=== PATIENT | female | born 1990 | race Caucasian/White ===

== ENCOUNTER 2016-07-20 14:13 | Observation (INO) | payer MEDICAID ==
[2016-07-20] MEDS ORDERED: PROMETHAZINE HCL 25 MG SUPP.RECT PR PRN (14:41)
[2016-07-20] MEDS ORDERED: ONDANSETRON HCL INJ/PF 4 MG/2 ML SDV IV ONE (15:30)
[2016-07-20 15:43] LABS: ABSOLUTE EOSINOPHILS # (AUTO) 0.1 10^3/uL (0.0-0.6); ABSOLUTE LYMPHOCYTES (AUTO) 2.2 10^3/uL (0.5-4.7); ABSOLUTE NEUT (AUTO) 14.4 10^3/uL (1.7-8.2); BASOPHILS % (AUTO) 0.3 % (0-2); EOSINOPHILS % (AUTO) 0.5 % (0-6); HEMATOCRIT 32.1 % (36.0-47.0); HEMOGLOBIN 10.9 g/dL (12.0-15.5); HGB HCT DIFFERENCE 0.6; LYMPHOCYTES % (AUTO) 12.6 % (13-45); MEAN CORPUSCULAR HEMOGLOBIN 30.4 pg (27.0-33.4); MEAN CORPUSCULAR HGB CONC 33.9 g/dL (32.0-36.0); MEAN CORPUSCULAR VOLUME 90 fl (80-97); MONOCYTES % (AUTO) 5.5 % (3-13); RED BLOOD COUNT 3.58 10^6/uL (3.72-5.28); RED CELL DISTRIBUTION WIDTH 13.1 % (11.5-14.0); SEGMENTED NEUTROPHILS % (AUTO) 81.1 % (42-78); WHITE BLOOD COUNT 17.7 10^3/uL (4.0-10.5)
[2016-07-20 15:59] LABS: ALANINE AMINOTRANSFERASE 16 U/L (9-52); ALBUMIN 3.6 g/dL (3.5-5.0); ALKALINE PHOSPHATASE 111 U/L (38-126); ANION GAP 10 (5-19); ASPARTATE AMINO TRANSFERASE 13 U/L (14-36); BILIRUBIN,TOTAL 0.5 mg/dL (0.2-1.3); BLOOD UREA NITROGEN 10 mg/dL (7-20); CALCIUM 9.6 mg/dL (8.4-10.2); CARBON DIOXIDE 25 mmol/L (22-30); CHLORIDE 103 mmol/L (98-107); CREATININE RESULT 0.69 mg/dL (0.52-1.25); GLUCOSE 74 mg/dL (75-110); POTASSIUM 4.4 mmol/L (3.6-5.0); SODIUM 137.8 mmol/L (137-145); TOTAL PROTEIN 6.9 g/dL (6.3-8.2)
[2016-07-20] MEDS: CEFTRIAXONE 1 GM/D5W RTU 1 GM/50 ML RTUPB IV SCH (17:32)
[2016-07-20] MEDS: RINGERS SOLUTION,LACTATED 1,000 ML IV PRN (17:32)
[2016-07-20] MEDS: FAMOTIDINE 20 MG TABLET PO SCH (21:08)
[2016-07-20] MEDS: NITROFURANTOIN MONOHYD/M-CRYST 100 MG CAPSULE PO SCH (21:08)
[2016-07-20] MEDS: ONDANSETRON HCL INJ/PF 4 MG/2 ML SDV IV SCH (21:08)
[2016-07-21] MEDS: RINGERS SOLUTION,LACTATED 1,000 ML IV PRN ×2 (00:39→09:46)
[2016-07-21] MEDS: ONDANSETRON HCL INJ/PF 4 MG/2 ML SDV IV SCH ×2 (05:04→14:26)
[2016-07-21] MEDS: CEFTRIAXONE 1 GM/D5W RTU 1 GM/50 ML RTUPB IV SCH ×2 (05:04→17:23)
[2016-07-21] MEDS: NITROFURANTOIN MONOHYD/M-CRYST 100 MG CAPSULE PO SCH (09:27)
[2016-07-21] MEDS: FAMOTIDINE 20 MG TABLET PO SCH (09:27)
--- NOTE | 2016-07-21 10:54 | PDOC PROGRESS REPORT ---
Subjective Progress Note for:: 07/21/16 Subjective:: feeling better. flank pain improved. suprapubic/pelvic pain improved. Physical Exam - Physical Exam Vital Signs: Temp Pulse Resp BP Pulse Ox 97.9 F 90 16 96/57 L 98 07/21/16 08:19 07/21/16 08:19 07/21/16 08:19 07/21/16 08:19 07/21/16 08:19 Intake & Output 07/20/16 07/21/16 07/22/16 06:59 06:59 06:59 Weight 73.4 kg General appearance: PRESENT: no acute distress, cooperative GI/Abdominal exam: PRESENT: soft, other - gravid, nontender. Result Laboratory Results: 07/20/16 15:15 07/20/16 15:15 07/20/16 07/20/16 15:15 15:15 WBC 17.7 H RBC 3.58 L Hgb 10.9 L Hct 32.1 L MCV 90 MCH 30.4 MCHC 33.9 RDW 13.1 Plt Count 223 Seg Neutrophils % 81.1 H Lymphocytes % 12.6 L Monocytes % 5.5 Eosinophils % 0.5 Basophils % 0.3 Absolute Neutrophils 14.4 H Absolute Lymphocytes 2.2 Absolute Monocytes 1.0 Absolute Eosinophils 0.1 Absolute Basophils 0.0 Sodium 137.8 Potassium 4.4 Chloride 103 Carbon Dioxide 25 Anion Gap 10 BUN 10 Creatinine 0.69 Est GFR ( Amer) > 60 Est GFR (Non-Af Amer) > 60 Glucose 74 L Calcium 9.6 Total Bilirubin 0.5 AST 13 L ALT 16 Alkaline Phosphatase 111 Total Protein 6.9 Albumin 3.6 Assessment & Plan - Diagnosis (1) Abdominal pain affecting Is this a current diagnosis for this admission?: Yes (2) Pyelonephritis Is this a current diagnosis for this admission?: Yes - Time Time Spent with patient: Less than 15 minutes Critical Time spent with patient: Less than 15 minutes Medications reviewed and adjusted accordingly: Yes Anticipated discharge: Home Within: within 24 hours - will discharge this evening after 3rd dose of rocephin if remains stable.
[2016-07-21 13:11] VITALS: BP 98/59
--- NOTE | 2016-07-21 18:34 | PDOC DISCHARGE SUMMARY ---
General - Admit/Disc Date/PCP Admission Date/Primary Care Provider: 07/20/16 14:13 MOIRA HARDING Discharge Date: 07/21/16 - Discharge Diagnosis (1) Abdominal pain affecting Is this a current diagnosis for this admission?: Yes (2) Pyelonephritis Is this a current diagnosis for this admission?: Yes - Additional Information Discharge Activity: Activity As Tolerated, No tub bath Home Medications: No Home Medications 05/07/16 History of Present Illness History of Present Illness: SHIMA SARMIENTO is a 25 year old female Hospital Course Hospital Course: doing well. IV rocephin x 3 doses Physical Exam - Physical Exam Vital Signs: Temp Pulse Resp BP Pulse Ox 98.0 F 73 18 98/59 L 97 07/21/16 12:09 07/21/16 12:09 07/21/16 12:09 07/21/16 12:09 07/21/16 12:09 Intake & Output 07/20/16 07/21/16 07/22/16 06:59 06:59 06:59 Weight 73.4 kg General appearance: PRESENT: no acute distress, cooperative GI/Abdominal exam: PRESENT: soft, other - gravid, nontender Result Laboratory Results: 07/20/16 15:15 07/20/16 15:15 Plan Discharge Plan: discharge home with po antibiotics and follow up in 1 wk. Time Spent: Less than 30 Minutes
== END 2016-07-21 18:45 | disposition home or self-care (01) ==
LOC: 2S 14:13
PROVIDERS: ADMIT Obstetrics & Gynecology; ATTEND Obstetrics & Gynecology
DX: O23.03 Infections of kidney in pregnancy, third trimester (principal); Z3A.31 31 weeks gestation of pregnancy
CPT/HCPCS: 59025 ×2; 36415; 85025; 80053; G0378 ×2; G0379; J3490 ×4; J2405 ×2; J7120 ×2; J0696 ×2; J8499

== ENCOUNTER 2016-08-14 11:25 | Emergency (ER) | payer MEDICAID ==
[2016-08-14 12:14] VITALS: BP 109/72
--- NOTE | 2016-08-14 12:40 | ER Document Report ---
ED General - General Chief Complaint: Chest Pain Stated Complaint: CHEST PAIN Mode of Arrival: Medic Information source: Patient Notes: 25 yr old female presents with complaitns of chest pain radiating to her groin that started today and occurs every 5 minutes. pt denies any vaginal bleeding or discharge. pt denies any cardiac hx TRAVEL OUTSIDE OF THE [place] IN LAST 30 DAYS: No - HPI Onset: Just prior to arrival Onset/Duration: Sudden Quality of pain: Sharp Severity: Mild Pain Level: 1 Associated symptoms: Other Exacerbated by: Denies Relieved by: Denies Similar symptoms previously: No Recently seen / treated by doctor: No - Related Data Allergies/Adverse Reactions: No Known Allergies Allergy (Verified 05/06/16 13:55) Past Medical History - Social History Smoking Status: Never Smoker Cigarette use (# per day): No Chew tobacco use (# tins/day): No Smoking Education Provided: No Family History: Reviewed & Not Pertinent Psychiatric Medical History: Denies: Hx Depression Past Surgical History: Reports: Hx Section - Immunizations Immunizations up to date: Yes Hx Diphtheria, Pertussis, Tetanus Vaccination: No Review of Systems - Review of Systems Notes: REVIEW OF SYSTEMS: CONSTITUTIONAL : Denies fever, chills, or sweats. Denies recent illness. EENT: Denies eye, ear, throat, or mouth pain or symptoms. Denies nasal or sinus congestion or discharge. Denies throat, tongue, or mouth swelling or difficulty swallowing. CARDIOVASCULAR: Admits to chest pain rating to her abdomen RESPIRATORY: Denies cough, cold, or chest congestion. Denies shortness of breath, difficulty breathing, or wheezing. GASTROINTESTINAL: Denies abdominal pain or distention. Denies nausea, vomiting , or diarrhea. Denies blood in vomitus, stools, or per rectum. Denies black, tarry stools. Denies constipation. GENITOURINARY: Denies difficulty urinating, painful urination, burning, frequency, blood in urine, or discharge. FEMALE GENITOURINARY: Denies vaginal bleeding, heavy or abnormal periods, irregular periods. Denies vaginal discharge or odor. MUSCULOSKELETAL: Denies back or neck pain or stiffness. Denies joint pain or swelling. SKIN: Denies rash, lesions or sores. HEMATOLOGIC : Denies easy bruising or bleeding. LYMPHATIC: Denies swollen, enlarged glands. NEUROLOGICAL: Denies confusion or altered mental status. Denies passing out or loss of consciousness. Denies dizziness or lightheadedness. Denies headache. Denies weakness or paralysis or loss of use of either side. Denies problems with gait or speech. Denies sensory loss, numbness, or tingling. Denies seizures. PSYCHIATRIC: Denies anxiety or stress. Denies depression, suicidal ideation, or homicidal ideation. ALL OTHER SYSTEMS REVIEWED AND NEGATIVE. Dictation was performed using [employer] voice recognition software PHYSICAL EXAMINATION: GENERAL: Well-appearing, well-nourished and in no acute distress. HEAD: Atraumatic, normocephalic. EYES: Pupils equal round and reactive to light, extraocular movements intact, conjunctiva are normal. ENT: Nares patent, oropharynx clear without exudates. Moist mucous membranes. NECK: Normal range of motion, supple without lymphadenopathy LUNGS: Breath sounds clear to auscultation bilaterally and equal. No wheezes rales or rhonchi. HEART: Regular rate and rhythm without murmurs ABDOMEN: Soft, gravid abdomen Female : deferred Musculoskeletal: Normal range of motion, no pitting or edema. No cyanosis. NEUROLOGICAL: Cranial nerves grossly intact. Normal speech, normal gait. Normal sensory, motor exams PSYCH: Normal mood, normal affect. SKIN: Warm, Dry, normal turgor, no rashes or lesions noted. Physical Exam - Vital signs Vitals: Temp Pulse Resp BP Pulse Ox 98.6 F 116 H 20 109/72 97 08/14/16 12:09 08/14/16 12:09 08/14/16 12:09 08/14/16 12:09 08/14/16 12:09 Course - Re-evaluation Re-evalutation: 08/14/16 12:40 Given that the pain is every 5 minutes, this does not sound cardiac or life- threatening in nature and actually appears to be more contraction related. Patient will be discharged and sent to [facility] for evaluation After performing a Medical Screening Examination, I estimate there is LOW risk for RUPTURED ESOPHAGUS, PNEUMOTHORAX, PULMONARY EMBOLISM, ACUTE CORONARY SYNDROME, OR THORACIC AORTIC DISSECTION, thus I consider the discharge disposition reasonable. The patient and I have discussed the diagnosis and risks , and we agree with discharging home with close follow-up. We also discussed returning to the Emergency Department immediately if new or worsening symptoms occur. We have discussed the symptoms which are most concerning (e.g., bloody sputum, worsening pain or shortness of breath) that necessitate immediate return. - Vital Signs Vital signs: Temp Pulse Resp BP Pulse Ox 98.6 F 116 H 20 109/72 97 08/14/16 12:09 08/14/16 12:09 08/14/16 12:09 08/14/16 12:08/14/16 12:09 Discharge - Discharge Clinical Impression: Abdominal pain affecting Condition: Stable Disposition: LABOR CHECK Instructions: Abdominal Pain ([facility])
--- NOTE | 2016-08-14 22:02 | EKG REPORT ---
SEVERITY:- OTHERWISE NORMAL ECG - SINUS TACHYCARDIA : Confirmed by: Oliverio Masters 14-Aug-2016 22:01:48
== END 2016-08-14 12:50 | disposition admitted as inpatient to this hospital (09) ==
LOC: ER 11:25
DX: R10.9 Unspecified abdominal pain (principal); R07.9 Chest pain, unspecified
CPT/HCPCS: 93005; 93010; 99284

== ENCOUNTER 2016-08-14 13:09 | Outpatient (CLI) | payer MEDICAID ==
[2016-08-14 14:39] LABS: APPEARANCE,URINE SLIGHTLY-CLOUDY; BILIRUBIN,URINE NEGATIVE (NEGATIVE); GLUCOSE, URINE NEGATIVE (NEGATIVE); KETONES,URINE NEGATIVE (NEGATIVE); LEUKOCYTE ESTERASE,URINE SMALL (NEGATIVE); NITRITE,URINE POSITIVE (NEGATIVE); PROTEIN,URINE NEGATIVE (NEGATIVE); URINE SPECIFIC GRAVITY 1.018; UROBILINOGEN,URINE NEGATIVE mg/dL (<2.0)
[2016-08-14] MEDS ORDERED: CEPHALEXIN 500 MG CAPSULE ONE (14:53)
[2016-08-14 15:07] LABS: URINE BARBITURATES SCREEN NEGATIVE; URINE METHADONE SCREEN NEGATIVE; URINE OPIATES LOW NEGATIVE; URINE PHENCYCLIDINE SCREEN NEGATIVE
--- NOTE | 2016-08-14 15:56 | Non Stress Test Report ---
Non Stress Test Datetime Report Generated by CPN: 08/14/2016 15:56 DEMOGRAPHIC EGA NST: 35.3 INDICATION Indication for Study: Ordered by Provider Indication for Study (NST) Other: Labor Check MONITORING Monitor Explained: Monitor Explained; Test Explained; Patient Verbalized Understanding Time on Monitor: 08/14/2016 13:02 Time off Monitor: 08/14/2016 14:00 NST Duration: 58 NST INTERVENTIONS NST Interventions: PO Hydration; Reposition Patient Physician Notified NST: H. Cedric, CNM BABY A: [id number] BABY A Movement : Present Contraction Frequency : 0 FHR Baseline : 140 Accelerations : 15X15 Decelerations : None Variability : Moderate 6-25bpm NST Review: Meets Criteria for Reactive NST NST Review and Verified By : MIRIAM Yu Results: Reactive NST REPORT Report Trigger: Send Report
== END 2016-08-14 14:59 | disposition home or self-care (01) ==
LOC: LC 13:09
PROVIDERS: ATTEND Obstetrics & Gynecology
PROC: 4A1HXCZ Monitoring of Products of Conception, Cardiac Rate, External Approach (ICD-10-PCS; principal; 2016-08-14)
DX: Z34.93 Encounter for supervision of normal pregnancy, unspecified, third trimester (principal); Z36 Encounter for antenatal screening of mother; Z3A.35 35 weeks gestation of pregnancy
CPT/HCPCS: 59025; 80307; 81001

== ENCOUNTER 2016-08-14 22:43 | Inpatient (IN) | payer MEDICAID ==
[2016-08-15 00:04] LABS: ABSOLUTE LYMPHOCYTES (AUTO) 0.8 10^3/uL (0.5-4.7); ABSOLUTE MONOCYTES (AUTO) 1.3 10^3/uL (0.1-1.4); ABSOLUTE NEUT (AUTO) 8.6 10^3/uL (1.7-8.2); BASOPHILS % (AUTO) 0.2 % (0-2); EOSINOPHILS % (AUTO) 0.2 % (0-6); HEMOGLOBIN 9.6 g/dL (12.0-15.5); HGB HCT DIFFERENCE 0.8; LYMPHOCYTES % (AUTO) 7.5 % (13-45); MEAN CORPUSCULAR HEMOGLOBIN 29.9 pg (27.0-33.4); MEAN CORPUSCULAR HGB CONC 34.2 g/dL (32.0-36.0); MEAN CORPUSCULAR VOLUME 88 fl (80-97); MONOCYTES % (AUTO) 11.8 % (3-13); RED BLOOD COUNT 3.19 10^6/uL (3.72-5.28); RED CELL DISTRIBUTION WIDTH 13.4 % (11.5-14.0); SEGMENTED NEUTROPHILS % (AUTO) 80.3 % (42-78); WHITE BLOOD COUNT 10.7 10^3/uL (4.0-10.5)
[2016-08-15] MEDS ORDERED: CEFTRIAXONE 1 GM/D5W RTU 50 ML IV PRN (00:13)
[2016-08-15] MEDS ORDERED: RINGERS SOLUTION,LACTATED 1,000 ML IV PRN (00:17)
[2016-08-15 00:25] LABS: ALANINE AMINOTRANSFERASE 22 U/L (9-52); ALBUMIN 3.1 g/dL (3.5-5.0); ALKALINE PHOSPHATASE 116 U/L (38-126); ANION GAP 12 (5-19); ASPARTATE AMINO TRANSFERASE 18 U/L (14-36); BILIRUBIN,DIRECT 0.1 mg/dL (0.0-0.4); BILIRUBIN,TOTAL 0.4 mg/dL (0.2-1.3); BLOOD UREA NITROGEN 6 mg/dL (7-20); CALCIUM 8.8 mg/dL (8.4-10.2); CARBON DIOXIDE 20 mmol/L (22-30); CHLORIDE 105 mmol/L (98-107); GLUCOSE 84 mg/dL (75-110); TOTAL PROTEIN 5.8 g/dL (6.3-8.2)
[2016-08-15] MEDS ORDERED: ONDANSETRON HCL INJ/PF 4 MG/2 ML SDV ONE (00:49)
[2016-08-15] MEDS ORDERED: MAG HYDROX/AL HYDROX/SIMETH SUSP 30 ML UDCUP ONE (00:49)
[2016-08-15] MEDS ORDERED: FAMOTIDINE INJ/PF 20 MG/2 ML SDV IV ONE (00:59)
[2016-08-15] MEDS ORDERED: CEFTRIAXONE 1 GM/D5W RTU 1 GM/50 ML RTUPB IV ONE (00:59)
[2016-08-15] MEDS ORDERED: ONDANSETRON HCL INJ/PF 4 MG/2 ML SDV IV PRN (01:02)
[2016-08-15] MEDS ORDERED: MORPHINE SULFATE 10 MG/ML INJ IV PRN ×2 (01:03→10:36)
[2016-08-15] MEDS: RINGERS SOLUTION,LACTATED 1,000 ML IV PRN ×3 (01:06→18:46)
[2016-08-15] MEDS ORDERED: ACETAMINOPHEN 100 ML IV ONE (01:17)
--- NOTE | 2016-08-15 01:19 | PDOC H&P ---
History of Present Illness Admission Date/PCP: 08/14/16 23:29 RANDA RILEY MD Patient complains of: back pain, vomiting History of Present Illness: SHIMA SARMIENTO is a 25 year old [id number] edc 09/15/16 EGA 35+3 presents with known uti now having back pain, vomiting. She does not think she has had fever, denies chills. Known history of pyelo several times before Past Medical History Cardiac Medical History: Reports: None Pulmonary Medical History: Reports: None Endocrine Medical History: Reports: None Renal/ History Note: history of pyelo and utis Malignancy Medical History: Reports: None GI Medical History: Reports: Gastroesophageal Reflux Disease Musculoskeltal Medical History: Reports: None Skin Medical History: Reports: None Psychiatric Medical History: Reports: None Denies: Depression Past Surgical History Past Surgical History: Reports: Section Social History Information Source: Patient Lives with: Family Smoking Status: Current Every Day Smoker Cigars Per Day: 2 Frequency of Alcohol Use: None Hx Recreational Drug Use: No Drugs: None Hx Prescription Drug Abuse: No Family History Family History: Reviewed & Not Pertinent Parental Family History Reviewed: Yes Children Family History Reviewed: Yes Sibling(s) Family History Reviewed.: Yes Medication/Allergy Home Medications: Nitrofurantoin Monohyd/M-Cryst [Macrobid 100 mg Capsule] 100 mg PO DAILY Allergies/Adverse Reactions: No Known Allergies Allergy (Verified 08/14/16 23:42) Physical Exam - Physical Exam Vital Signs: Intake & Output 08/13/16 08/14/16 08/15/16 06:59 06:59 06:59 Weight 77 kg General appearance: PRESENT: no acute distress, cooperative Respiratory exam: PRESENT: clear to auscultation holden Cardiovascular exam: PRESENT: tachycardia GI/Abdominal exam: PRESENT: normal bowel sounds, soft, other - positive left cva tenderness. ABSENT: distended, guarding, mass, organolmegaly, rebound, tenderness Musculoskeletal exam: PRESENT: ambulatory Neurological exam: PRESENT: alert, altered, awake Result Laboratory Results: 08/14/16 23:51 08/14/16 23:51 08/14/16 08/14/16 23:51 23:51 WBC 10.7 H RBC 3.19 L Hgb 9.6 L Hct 28.0 L MCV 88 MCH 29.9 MCHC 34.2 RDW 13.4 Plt Count 165 Seg Neutrophils % 80.3 H Lymphocytes % 7.5 L Monocytes % 11.8 Eosinophils % 0.2 Basophils % 0.2 Absolute Neutrophils 8.6 H Absolute Lymphocytes 0.8 Absolute Monocytes 1.3 Absolute Eosinophils 0.0 Absolute Basophils 0.0 Sodium 137.0 Potassium 4.0 Chloride 105 Carbon Dioxide 20 L Anion Gap 12 BUN 6 L Creatinine 0.60 Est GFR ( Amer) > 60 Est GFR (Non-Af Amer) > 60 Glucose 84 Calcium 8.8 Total Bilirubin 0.4 AST 18 ALT 22 Alkaline Phosphatase 116 Total Protein 5.8 L Albumin 3.1 L Heartbeat/NST: category 1 EKG Comments: sinus tachycardia Assessment & Plan - Diagnosis (1) Pyelonephritis Is this a current diagnosis for this admission?: YesPlan: IV Rocephin and antiemetics. Pain control as necessary - Inpatient Certification Based on my medical assessment, after consideration of the patient's comorbidities, presenting symptoms, or acuity I expect that the services needed warrant INPATIENT care.: Yes I certify that my determination is in accordance with my understanding of Medicare's requirements for reasonable and necessary INPATIENT services [42 CFR 412.3e].: Yes Medical Necessity: Need For IV Fluids, Need for Pain Control, Need for IV Antibiotics, Risk of Complication if Not Cared For in Hospital
[2016-08-15 01:32] LABS: APPEARANCE,URINE SLIGHTLY-CLOUDY; BILIRUBIN,URINE NEGATIVE (NEGATIVE); GLUCOSE, URINE NEGATIVE (NEGATIVE); KETONES,URINE 80 mg/dL (NEGATIVE); LEUKOCYTE ESTERASE,URINE TRACE (NEGATIVE); NITRITE,URINE NEGATIVE (NEGATIVE); PROTEIN,URINE NEGATIVE (NEGATIVE); URINE SPECIFIC GRAVITY 1.008; UROBILINOGEN,URINE NEGATIVE mg/dL (<2.0)
[2016-08-15 01:56] LABS: URINE BARBITURATES SCREEN NEGATIVE; URINE METHADONE SCREEN NEGATIVE; URINE OPIATES LOW NEGATIVE; URINE PHENCYCLIDINE SCREEN NEGATIVE
--- NOTE | 2016-08-15 04:45 | L&D Admission Assessment ---
LD ADM ASMT Datetime Report Generated by CPN: 08/15/2016 04:45 PATIENT ASSESSMENT Assessment Type: Admission Assessment (08/14/2016 23:37:Jaylin Boyle, MIRIAM) WEIGHT Weight (lb): 169 (08/14/2016 23:43:QS system process) Weight (lb): 172 (08/14/2016 13:35:QS system process) Weight (kg): 76.8 (08/14/2016 23:43:QS system process) Weight (kg): 78.2 (08/14/2016 13:35:QS system process) Total Wt Gain (lb): 19 (08/14/2016 23:43:QS system process) Total Wt Gain (lb): 22 (08/14/2016 13:35:QS system process) Total Wt Gain (lb): 6 (08/14/2016 13:21:QS system process) Wt Gain (kg): 8.8 (08/14/2016 23:43:QS system process) Wt Gain (kg): 9.8 (08/14/2016 13:35:QS system process) Wt Gain (kg): 2.8 (08/14/2016 13:21:QS system process) BMI: 30.9 (08/14/2016 23:43:QS system process) BMI: 31.5 (08/14/2016 13:35:QS system process) PAIN Pain Scale: 2 (08/15/2016 03:02:Jaylin Boyle RN) Pain Scale: 5 (08/14/2016 23:12:Jaylin Boyle RN) Pain Presence: Intermittent (08/15/2016 03:02:Jaylin Boyle RN) Pain Presence: Intermittent (08/14/2016 23:12:Jaylin Boyle RN) Pain Type: Dull (08/15/2016 03:02:Jaylin Boyle RN) Pain Type: Contraction (08/14/2016 23:12:Jaylin Boyle RN) Pain Location: Back (08/15/2016 03:02:Jaylin Boyle RN) Pain Location: Abdomen; Back; Head (08/14/2016 23:12:Jaylin Kossmann, RN) CONTRACTIONS Frequency (min): x2 (08/15/2016 00:30:Jaylin Anaann, RN) Frequency (min): none (08/15/2016 00:01:Jaylin Jessicasmann, RN) Frequency (min): none (08/14/2016 23:30:Jaylin Kossmann, RN) Frequency (min): 0 (08/14/2016 14:00:Eleonora Agatha, RN) Frequency (min): 0 (08/14/2016 13:30:Eleonora Agatha, RN) Duration (sec): 40-50 (08/15/2016 00:30:Jaylin Jessicasmann, RN) Quality: Mild (08/15/2016 00:30:Jaylin Jessicasmann, RN) Resting Tone [place]: Relaxed (08/15/2016 00:30:Jaylin Jessicasmann, RN) Resting Tone [place]: Relaxed (08/15/2016 00:01:Jaylin Jessicasmann, RN) Resting Tone [place]: Relaxed (08/14/2016 23:30:Jaylin Kossmann, RN) Resting Tone [place]: Relaxed (08/14/2016 14:00:Eleonora Agatha, RN) Resting Tone [place]: Relaxed (08/14/2016 13:30:Eleonora Agatha, RN) NEURO Level of Consciousness: Fully Conscious (08/14/2016 23:37:Jaylin Boyle RN) DTR's/Clonus: DTRs 2+; No Clonus (08/14/2016 23:37:Jaylin Boyle RN) Headache: Generalized (08/14/2016 23:37:Jaylin Boyle RN) Dizziness: Yes (08/14/2016 23:37:Jaylin Boyle RN) Blurred Vision: No (08/14/2016 23:37:Jaylin Boyle RN) Extremity Numbness/Tingling : None (08/14/2016 23:37:Jaylin Boyle RN) Extremity Movement: Full Range of Motion (08/14/2016 23:37:Jaylin Boyle RN) CARDIOVASCULAR Heart Rhythm: Regular (Annotations: normal s1s2 on auscultation with no evidence of murmur, evidence of intermittent tachycardia present ) (08/14/2016 23:37:Jaylin Boyle RN) Nailbeds: [place] (08/14/2016 23:37:Jaylin Boyle RN) Capillary Refill: Less than 3 Seconds (08/14/2016 23:37:Jaylin Boyle RN) Lower Extremities Edema: None (08/14/2016 23:37:Jaylin Boyle RN) Lower Extremities Edema Degree: None (08/14/2016 23:37:Jaylin Boyle RN) Upper Extremities Edema: None (08/14/2016 23:37:Jaylin Boyle RN) Upper Extremities Edema Degree: None (08/14/2016 23:37:Jaylin Boyle RN) Facial Edema: None (08/14/2016 23:37:Jaylin Boyle RN) Bola's Sign Left Leg: Negative (08/14/2016 23:37:Jaylin Boyle RN) Bola's Sign Right Leg: Negative (08/14/2016 23:37:Jaylin Boyle RN) DVT RISK ASSESSMENT DVT Risk Age: Age less than 41 years (08/14/2016 23:37:Jaylin Boyle RN) DVT Risk BMI: BMI<31 (08/14/2016 23:37:Jaylin Boyle RN) DVT Risk Surgery: None Applicable (08/14/2016 23:37:Jaylin Boyle RN) DVT Risk Other: Women Only- or (<1 month) (08/14/2016 23:37:Jaylin Boyle RN) DVT Risk Total: 1 (08/14/2016 23:37:QS system process) DVT Risk Text: Low Risk (<10%) No specific measures, early ambulation (08/14/2016 23:37:QS system process) RESPIRATORY Respiratory Effort: Unlabored; Regular Rhythm; Equal Expansion (08/14/2016 23:37:Jaylin Boyle RN) Breath Sounds, Left: Clear and Equal (08/14/2016 23:37:Jaylin Boyle RN) Breath Sounds, Right: Clear and Equal (08/14/2016 23:37:Jaylin Boyle RN) Cough Productivity: Productive (08/14/2016 23:37:Jaylin Boyle RN) GASTROINTESTINAL Nausea/Vomiting: Present (Annotations: patient states that she has vomitted five times in the last hour ) (08/14/2016 23:37:Jaylin Boyle RN) Bowel Sounds: Normoactive; All Quadrants (08/14/2016 23:37:Jaylin Boyle RN) RUQ Epigastric Pain: Denies (08/14/2016 23:37:Jaylin Boyle RN) Bowel Patterns: Soft, Formed Stool (08/14/2016 23:37:Jaylin Boyle RN) Hemorrhoids: None (08/14/2016 23:37:Jaylin Boyle RN) Diet Type: Regular diet (08/14/2016 23:37:Jaylin Boyle RN) GENITOURINARY Bladder: Nondistended (08/14/2016 23:37:Jaylin Boyle RN) Frequency of Urination: Yes (08/14/2016 23:37:Jaylin Boyle RN) Urination Burning: No (08/14/2016 23:37:Jaylin Boyle RN) CVA Tenderness: Yes (Annotations: left sided cva tenderness) (08/14/2016 23:37:Jaylin Boyle RN) Vaginal Discharge Amount: Small (08/14/2016 23:37:Jaylin Boyle RN) Vaginal Discharge Color: Yellow (08/14/2016 23:37:Jaylin Boyle RN) Vaginal Discharge Odor: Non-Odorous (08/14/2016 23:37:Jaylin Boyle RN) Vaginal Discharge Character: Thin (08/14/2016 23:37:Jaylin Boyle RN) INTEGUMENTARY Skin Color: Normal for Race (08/14/2016 23:37:Jaylin Boyle RN) Skin Temperature: Warm (08/14/2016 23:37:Jaylin Boyle RN) Skin Moisture: Dry (08/14/2016 23:37:Jayiln Boyle RN) Surgical Scars: csection scar (08/14/2016 23:37:Jaylin Boyle RN) BENJA SKIN ASSESSMENT Benja Scale Sensory Perception: No Impairment- Responds to verbal commands. Has no sensory deficit which would limit ability to feel or voice pain or discomfort (08/14/2016 23:37:Jaylin Boyle RN) Benja Scale Moisture: Rarely Moist- Skin is usually dry. Linen only requires changing at routine intervals (08/14/2016 23:37:Jaylin Boyle RN) Benja Scale Activity: Walks Frequently- Walks outside the room at least twice a day and inside room at least every 2 hours during the day. (08/14/2016 23:37:Jaylin Boyle RN) Benja Scale Mobility: No Limitations- Makes major and frequent changes in position without assistance (08/14/2016 23:37:Jaylin Boyle RN) Benja Scale Nutrition: Excellent- Eats most of every meal. Never refuses a meal. Usually eats a total of 4 or more servings of meat and dairy products. Occasionally eats between meals. Does not require supplementation (08/14/2016 23:37:Jaylin Boyle RN) Benja Scale Friction and Shear: No Apparent Problem- Moves in bed and in chair independently and has sufficient muscle strength to lift up completely during move. Maintains good position in bed or chair at all times (08/14/2016 23:37:Jaylin Boyle RN) Benja Scale Total: 23 (08/14/2016 23:37:QS system process) Benja Scale Risk: No Risk of Pressure Ulcer Noted at this Time (08/14/2016 23:37:QS system process) SUPPORT Family Support: Family supportive (08/14/2016 23:37:Jaylin Boyle RN) Emotional State: Calm/Relaxed (08/14/2016 23:37:Jaylin Boyle RN) SAFETY Call [place]th Within Reach: Yes (08/14/2016 23:37:Jaylin Boyle RN) Side Rails Up: Yes (08/14/2016 23:37:Jaylin Boyle RN) Bed Wheels Locked: Yes (08/14/2016 23:37:Jaylin Boyle RN) Arm Bands Present: Yes (08/14/2016 23:37:Jaylin Boyle RN) Isolation: [place] (08/14/2016 23:37:Jaylin Boyle RN) FALL SCREEN Fall Risk History of Falling: (0) No (08/14/2016 23:37:Jaylin Boyle RN) Fall Risk Secondary Diagnosis: (0) No (08/14/2016 23:37:Jaylin Boyle RN) Fall Risk Ambulatory Aid: (0) None/Bedrest/Wheelchair/Nurse Assist (08/14/2016 23:37:Jaylin Boyle RN) Fall Risk IV Therapy: (20) Yes (08/14/2016 23:37:Jaylin Boyle RN) Fall Risk Gait: (0) Normal/Bedrest/Immobile (08/14/2016 23:37:Jaylin Boyle RN) Fall Risk Mental Status: (0) Oriented to Own Ability (08/14/2016 23:37:Jaylin Boyle RN) Fall Risk Score: 20 (08/14/2016 23:37:QS system process) Fall Risk Score Definition: No Risk: No action required (08/14/2016 23:37:QS system process) RECENT TRAVEL/INFECTIOUS DISEASE Recent Exp Communicable Disease: Yes (Annotations: daughter and sister recently had the flu ) (08/14/2016 23:37:Jaylin Boyle RN) Cough or Fever: Yes (08/14/2016 23:37:Jaylin Boyle RN) Foreign Travel Past 10 Days: No (08/14/2016 23:37:Jaylin Boyle RN) Open Wounds or Sores: No (08/14/2016 23:37:Jaylin Boyle RN) Prior Antibiotic Resistance Tx: No (08/14/2016 23:37:Jaylin Boyle RN) Cultures Obtained: Not Applicable (Annotations: plan for blood cultures ) (08/14/2016 23:37:Jaylin Boyle RN) Isolation Initiated: No (08/14/2016 23:37:Jaylin Boyle RN) Pt/Family Education: Handwashing Hygiene (08/14/2016 23:37:Jaylin Boyle RN) BABY A FHR Baseline Rate (bpm) Baby A: 135 (08/15/2016 00:30:Jaylin Boyle RN) FHR Baseline Rate (bpm) Baby A: 140 (08/15/2016 00:01:Jaylin Boyle RN) FHR Baseline Rate (bpm) Baby A: 135 (08/14/2016 23:30:Jaylin Boyle RN) FHR Baseline Rate (bpm) Baby A: 145 (08/14/2016 14:00:Eleonora Snider RN) FHR Baseline Rate (bpm) Baby A: 145 (08/14/2016 13:30:Eleonora Snider RN) Variability Baby A: Moderate 6-25 bpm (08/15/2016 00:30:Jaylin Boyle RN) Variability Baby A: Moderate 6-25 bpm (08/15/2016 00:01:Jaylin Boyle RN) Variability Baby A: Moderate 6-25 bpm (08/14/2016 23:30:Jaylin Boyle RN) Variability Baby A: Moderate 6-25 bpm (08/14/2016 14:00:Eleonora Snider RN) Variability Baby A: Moderate 6-25 bpm (08/14/2016 13:30:Eleonora Snider RN) Accelerations Baby A: 15X15 (08/15/2016 00:30:Jaylin Boyle RN) Accelerations Baby A: 15X15 (08/15/2016 00:01:Jaylin Boyle RN) Accelerations Baby A: 15X15 (08/14/2016 23:30:Jaylin Boyle RN) Accelerations Baby A: 15X15 (08/14/2016 14:00:Eleonora Snider RN) Accelerations Baby A: 15X15 (08/14/2016 13:30:Eleonora Snider RN) Decelerations Baby A: None (08/15/2016 00:30:aJylin Boyle RN) Decelerations Baby A: None (08/15/2016 00:01:Jaylin Boyle RN) Decelerations Baby A: None (08/14/2016 23:30:Jaylin Boyle RN) Decelerations Baby A: None (08/14/2016 14:00:Eleonora Snider RN) Decelerations Baby A: None (08/14/2016 13:30:Eleonora Snider RN) ADDITIONAL COMMENTS Assessment Flag: Admission Assessment (08/14/2016 23:37:QS system process)
--- NOTE | 2016-08-15 04:45 | L&D General Admission ---
General Admit Datetime Report Generated by CPN: 08/15/2016 04:45 INFORMATION Patient Age: 25 (05/07/2016 11:49:QS system process) EDC: 09/15/2016 00:00 (08/14/2016 13:21:Eleonora Snider RN) : 2 (08/14/2016 13:21:Eleonora Snider RN) Para: 1 (08/14/2016 13:21:Eleonora Snider RN) Term: 1 (08/14/2016 13:21:Eleonora Snider RN) : 0 (08/14/2016 13:21:Eleonora Snider RN) Spontaneous Abortions: 0 (08/14/2016 13:21:Eleonora Snider RN) Induced Abortions: 0 (08/14/2016 13:21:Eleonora Snider RN) Livin (08/14/2016 13:21:Eleonora Snider RN) Cesareans: 1 (08/14/2016 13:21:Eleonora Snider RN) VBACs: 0 (08/14/2016 13:21:Eleonora Snider RN) Ectopic: 0 (08/14/2016 13:21:Eleonora Snider RN) Multiple Births: 0 (08/14/2016 13:21:Eleonora Snider RN) Baby, Number in Womb: 1 (08/14/2016 13:21:Eleonora Snider RN) [facility]ARE [facility] (08/14/2016 13:21:Eleonora Snider RN) Adequate Care: Yes (08/14/2016 13:21:Eleonora Snider RN) Prepregnancy Weight (lb): 150 (08/14/2016 13:21:Jaylin Boyle RN) Prepregnancy Weight (kg): 68.2 (08/14/2016 13:21:QS system process) Height (in): 62 (08/15/2016 03:58:QS system process) Height (in): 62 (08/14/2016 23:43:QS system process) Height (in): 62 (08/14/2016 13:35:QS system process) Height (in): 62 (05/07/2016 12:20:QS system process) ALLERGIES Medication Allergy: No (08/14/2016 13:21:Jaylin Boyle RN) Medication Allergies: No Known Allergies (08/14/2016) (08/14/2016 23:43:QS system process) Medication Allergies: No Known Allergies (05/06/2016) (05/07/2016 11:49:QS system process) Latex Allergy: No Latex Allergies (08/14/2016 13:21:Jaylin Boyle RN) Food Allergies: denies (08/14/2016 13:21:Jaylin Boyle RN) Environmental Allergies: denies (08/14/2016 13:21:Jaylin Boyle RN) COMMUNICATION Primary Language: Turkmen (08/14/2016 13:21:Eleonora Snider RN) Medical Tx Preferred Language: Turkmen (08/14/2016 13:21:Eleonora Snider RN) Turkmen Communication Ability: Speaks Turkmen; Reads Turkmen (08/14/2016 13:21:Jaylin Boyle RN) Communication Barrier(s): None (08/14/2016 13:21:Jaylin Boyle RN) DEMOGRAPHICS Address: [address] [place] [id number] (08/14/2016 13:09:QS system process) Address: [address] [place] [address] (05/07/2016 11:49:QS system process) Zipcode: [address] (05/07/2016 11:49:QS system process) Home (05/07/2016 11:49:QS system process) SSN: [id number] (05/07/2016 11:49:QS system process) Next of Kin Name: ROBYN CURTIS (05/07/2016 11:49:QS system process) Next of Kin (05/07/2016 11:49:QS system process) Next of Kin Relationship: MO (05/07/2016 11:49:QS system process) Date of : 1990 (05/07/2016 11:49:QS system process) Marital Status: (05/07/2016 11:49:QS system process) Sex: Female (05/07/2016 11:49:QS system process) Race: (05/07/2016 11:49:QS system process) Ethnicity: Non- or (05/07/2016 11:49:QS system process) Gnosticist: None (05/07/2016 11:49:QS system process) DRUG AND ALCOHOL USE Alcohol: No (08/14/2016 13:21:Jaylin Boyle RN) Cigarettes: Current Some Day Smoker. [id number] (08/14/2016 13:21:Jaylin Boyle RN) Marijuana: No (08/14/2016 13:21:Jaylin Boyle RN) Cocaine: No (08/14/2016 13:21:Jaylin Boyle RN) Other Illicit Drugs: No (08/14/2016 13:21:Jaylin Boyle RN) VACCINE HISTORY Influenza Vaccine: No (08/14/2016 13:21:Jaylin Boyle RN) Pneumococcal Vaccine: No (08/14/2016 13:21:Jaylin Boyle RN) Tetanus Vaccine: Uncertain (08/14/2016 13:21:Jaylin Boyle RN) Tdap Vaccine: Uncertain (08/14/2016 13:21:Jaylin Boyle RN) Hepatitis B Vaccine: Yes (08/14/2016 13:21:Jaylin Boyle RN) Outsole Handler: Other: Dr. Hilliard at [place] (08/14/2016 13:21:Jaylin Boyle RN) Feeding Preference: Both (08/14/2016 13:21:Jaylin Boyle RN) Benefit of Breast Feed Discussed: Yes (08/14/2016 13:21:Jaylin Boyle RN) Circumcision: Yes (08/14/2016 13:21:Jaylin Boyle RN) Classes Attended: No (08/14/2016 13:21:Jaylin Boyle RN) Tubal Ligation: No (08/14/2016 13:21:Jaylin Boyle RN) Tubal Authorization Signed: N/A (08/14/2016 13:21:Jaylin Boyle RN) Consent: N/A (08/14/2016 13:21:Jaylin Boyle RN) Consent Signed: N/A (08/14/2016 13:21:Jaylin Boyle RN) Pain Management Plans: Spinal (08/14/2016 13:21:Jaylin Boyle RN) Plans for Labor and Delivery: None (08/14/2016 13:21:Jaylin Boyle RN) Support Person: Rafiq M. (08/14/2016 13:21:Jaylin Boyle RN) Support Person Relationship: (08/14/2016 13:21:Jaylin Boyle RN) Cultural/Spritual Practice: No (08/14/2016 13:21:Jaylin Boyle RN) Spir/Cult Dietary Needs: No (08/14/2016 13:21:Jaylin Boyle RN) LIVING SITUATION/DISCHARGE PLAN Living Arrangements: House (08/14/2016 13:21:Jaylin Boyle RN) Adequate Access to:: Electric; Heat; Refrigeration; Plumbing/Running water; Phone; Transportation (08/14/2016 13:21:Jaylin Boyle RN) WIC Program: Yes (08/14/2016 13:21:Jaylin Boyle RN) Discharge Luggage Repairer Person: Rafiq (08/14/2016 13:21:Jaylin Boyle RN) Person to Help after Discharge: Rafiq (08/14/2016 13:21:Jaylin Boyle RN) Currently Using Commun Resources: Yes (08/14/2016 13:21:Jaylin Boyle RN) Specify Current Resource Used: medicaid, and food stamps (08/14/2016 13:21:Jaylin Boyle RN) Outside Agency/Airline Pilot: No (08/14/2016 13:21:Jaylin Boyle RN) Car Seat for Discharge: Yes (08/14/2016 13:21:Jaylin Boyle RN) Adoption Requested: No (08/14/2016 13:21:Jaylin Boyle RN) Pt Contact w/infant Post : N/A (08/14/2016 13:21:Jaylin Boyle RN) LABS Blood Type: O Negative (Annotations: Data stored by CPN on behalf of user) (08/14/2016 13:21:Jaylin Boyle RN) Hemoglobin: 9.6 L (08/14/2016 23:51:QS system process) Hemoglobin: 10.9 L (07/20/2016 15:15:QS system process) Hemoglobin: 11.0 L (05/07/2016 13:23:QS system process) Hematocrit: 28.0 L (08/14/2016 23:51:QS system process) Hematocrit: 32.1 L (07/20/2016 15:15:QS system process) Hematocrit: 31.2 L (05/07/2016 13:23:QS system process) MCV: 88 (08/14/2016 23:51:QS system process) MCV: 90 (07/20/2016 15:15:QS system process) MCV: 93 (05/07/2016 13:23:QS system process) RPR/VDRL: Nonreactive (08/14/2016 13:21:Eleonora Snider RN) HIV Results: nonreactive (08/14/2016 13:21:Eleonora Snider RN) Hepatitis B: Negative (08/14/2016 13:21:Jaylin Boyle RN) Rubella: Immune (08/14/2016 13:21:Jaylin Boyle RN) Varicella: Non Susceptible (08/14/2016 13:21:Jaylin Boyle RN) OB/PREVIOUS HISTORY Previous Procedures: Ultrasound; NST (08/14/2016 13:21:Jaylin Boyle RN) Current Procedures: Ultrasound; NST (08/14/2016 13:21:Jaylin Boyle RN) History of Previous : Yes (08/14/2016 13:21:Jaylin Boyle RN) History of Gestational Diabetes: No (08/14/2016 13:21:Jaylin Boyle RN) History of PIH: No (08/14/2016 13:21:Jaylin Boyle RN) History of Incompetent Cervix: No (08/14/2016 13:21:Jaylin Boyle RN) History of Placenta Previa/Abrup: No (08/14/2016 13:21:Jaylin Boyle RN) History of Macrosomia: No (08/14/2016 13:21:Jaylin Boyle RN) History of IUGR: No (08/14/2016 13:21:Jaylin Boyle RN) History of Hemorrhage: No (08/14/2016 13:21:Jaylin Boyle RN) History of Loss/Stillborn: No (08/14/2016 13:21:Jaylin Boyle RN) History of : No (08/14/2016 13:21:Jaylin Boyle RN) History of D (Rh) Sensitization: No (08/14/2016 13:21:Jaylin Boyle RN) History Recurrent Loss/Stillborn: No (08/14/2016 13:21:Jaylin Boyle RN) History Depression/PP Depression: No (08/14/2016 13:21:Jaylin Boyle RN) History of Uterine Anomaly/JAMAL: No (08/14/2016 13:21:Jaylin Boyle RN) History of Infertility: No (08/14/2016 13:21:Jaylin Boyle RN) History of ART Treatment: No (08/14/2016 13:21:Jaylin Boyle RN) History of JAMAL: No (08/14/2016 13:21:Jaylin Boyle RN) Comments Obstetrical History: g1-2010, 40 weeks, emergency c/section due to tracing. 7lb 14oz g2-currenty , frequent utis (08/14/2016 13:21:Jaylin Boyle RN) MEDICAL HISTORY Med Hx Diabetes: No (08/14/2016 13:21:Jaylin Boyle RN) Med Hx Hypertension: No (08/14/2016 13:21:Jaylin Boyle RN) Med Hx Heart Disease: No (08/14/2016 13:21:Jaylin Boyle RN) Med Hx Autoimmune Disorder: No (08/14/2016 13:21:Jaylin Boyle RN) Med Hx Kidney Disease/UTI: Yes (08/14/2016 13:21:Jaylin Boyle RN) Med Hx Neurologic/Epilepsy: No (08/14/2016 13:21:Jaylin Boyle RN) Med Hx Psychiatric Disorders: No (08/14/2016 13:21:Jaylin Boyle RN) Med Hx Hepatitis/Liver Disease: No (08/14/2016 13:21:Jaylin Boyle RN) Med Hx Varicosities/Phlebitis: No (08/14/2016 13:21:Jaylin Boyle RN) Med Hx Thyroid Dysfunction: No (08/14/2016 13:21:Jaylin Boyle RN) Med Hx Trauma/Violence: No (08/14/2016 13:21:Jaylin Boyle RN) Med Hx Blood Transfusion: No (08/14/2016 13:21:Jaylin Boyle RN) Med Hx Pulmonary (Asthma,TB): No (08/14/2016 13:21:Jaylin Boyle RN) Med Hx Breast: No (08/14/2016 13:21:Jaylin Boyle RN) Med Hx WATER METER READER Surgery: No (08/14/2016 13:21:Jaylin Boyle RN) Med Hx Hospitalization/Surgery: Yes (08/14/2016 13:21:Jaylin Boyle RN) Med Hx Anesthetic Complications: No (08/14/2016 13:21:Jaylin Boyle RN) Med Hx Abnormal Pap Smear: No (08/14/2016 13:21:Jaylin Boyle RN) Other Medical Diseases: No (08/14/2016 13:21:Jaylin Boyle RN) Med Hx Significant Family Hx: No (08/14/2016 13:21:Jaylin Boyle RN) Details of Med/Surg Hx: c/section 2010, frequent uti, smoker 2 cigs a day (08/14/2016 13:21:Jaylin Boyle RN) INFECTIOUS HISTORY Inf Hx Gonorrhea: No (08/14/2016 13:21:Jaylin Boyle RN) Inf Hx Chlamydia: No (08/14/2016 13:21:Jaylin Boyle RN) Inf Hx Syphilis: No (08/14/2016 13:21:Jaylin Boyle RN) Inf Hx HIV/AIDS: No (08/14/2016 13:21:Jaylin Boyle RN) Inf Hx Human Papilloma Virus: No (08/14/2016 13:21:Jaylin Boyle RN) Inf Hx Pt/Partner Genital Herpes: No (08/14/2016 13:21:Jaylin Boyle RN) Inf Hx Tuberculosis/Exposure: No (08/14/2016 13:21:Jaylin Boyle RN) Inf Hx Hepatitis B,C: No (08/14/2016 13:21:Jaylin Boyle RN) Inf Hx Rash or Viral Illness: No (08/14/2016 13:21:Jaylin Boyle RN) GENETIC HISTORY Gen Hx Age >=35 at VINNIE: No (08/14/2016 13:21:Jaylin Boyle RN) Gen Hx Thalassemia: No (08/14/2016 13:21:Jaylin Boyle RN) Gen Hx Congenital Heart Defect: No (08/14/2016 13:21:Jaylin Boyle RN) Gen Hx Neural Tube Defect: No (08/14/2016 13:21:Jaylin Boyle RN) Gen Hx Down's Syndrome: No (08/14/2016 13:21:Jaylin Boyle RN) Gen Hx Prashanth-Sachs: No (08/14/2016 13:21:Jaylin Boyle RN) Gen Hx Susi: No (08/14/2016 13:21:Jaylin Boyle RN) Gen Hx Familial Dysautonomia: No (08/14/2016 13:21:Jaylin Boyle RN) Gen Hx Sickle Cell Disease/Trait: No (08/14/2016 13:21:Jaylin Boyle RN) Gen Hx Hemophilia/Blood Disorder: No (08/14/2016 13:21:Jaylin Boyle RN) Gen Hx Muscular Dystrophy: No (08/14/2016 13:21:Jaylin Boyle RN) Gen Hx Cystic Fibrosis: No (08/14/2016 13:21:Jaylin Boyle RN) Gen Hx Huntingtons Chorea: No (08/14/2016 13:21:Jaylin Boyle RN) Gen Hx Mental Retardation/Autism: No (08/14/2016 13:21:Jaylin Boyle RN) Gen Hx Tested for Fragile X: No (08/14/2016 13:21:Jaylin Boyle RN) Gen Hx Other Inher/Chromosomal: No (08/14/2016 13:21:Jaylin Boyle RN) Gen Hx Maternal Metabolic DO: No (08/14/2016 13:21:Jaylin Boyle RN) Gen Hx Pt Father or FOB Defect: No (08/14/2016 13:21:Jaylin Boyle RN) Gen Hx Other Genetic History: No (08/14/2016 13:21:Jaylin Boyle RN) Gen Hx Drugs/Meds since LMP: Yes (08/14/2016 13:21:Jaylin Boyle RN) Gen Hx Medications: keflex, macrobid (08/14/2016 13:21:Jaylin Boyle RN)
--- NOTE | 2016-08-15 04:45 | L&D Discharge Summary ---
OB Discharge Summary Datetime Report Generated by CPN: 08/15/2016 04:45 DISCHARGE DIAGNOSIS Diagnosis/Symptoms: UTI Gestation: 35.3 Number of Babies in Womb: 1 Parity: 1 DIET/ACTIVITY/RESTRICTIONS Diet: Regular Activity: Normal Activity TEACHING/INSTRUCTIONS/REFERRALS Instructions Given To: Patient Instructions Understood: Patient Verbalized Understanding; Support Person Verbalized Understanding Referrals: None Educational Materials- Other: kick counts, early labor DISCHARGE INFORMATION Discharged AMA: No Discharge Date/Time: 08/14/2016 14:59 Discharged To: Home Discharge Provider Name: HRandi Cedric, CNM Discharge Method: Ambulatory Condition: Stable FOLLOW UP INFORMATION Follow Up With: [facility] Follow Up On: As Scheduled Follow Up Phone Number: [facility] - Comments: Patient instructed to stay hydrated and to take antibiotics as prescribed
--- NOTE | 2016-08-15 04:45 | L&D Current Admission ---
Current Admit Datetime Report Generated by CPN: 08/15/2016 04:45 ADMISSION INFORMATION Current Admit Date/Time: 08/14/2016 23:35 (08/15/2016 00:36:Jaylin Boyle RN) Reason for Admission: Observation (08/15/2016 00:36:Jaylin Boyle RN) Chief Complaint: Urinary Frequency; Flank Pain; Nausea; Vomiting (08/15/2016 00:36:Jaylin Boyle RN) Meds During -Oth: keflex, macrobid (08/15/2016 00:36:Jaylin Boyle RN) EGA per Dates: 35.3 (08/15/2016 00:36:QS system process) Admitted From: Home (08/15/2016 00:36:Jaylin Boyle RN) Reason for Induction: Not Applicable (08/15/2016 00:36:Jaylin Boyle RN) Records Available: Yes (08/15/2016 00:36:Jaylin Boyle RN) General Admission Information: Reviewed (08/15/2016 00:36:Jaylin Boyle RN) BELONGINGS/ADVANCED DIRECTIVES Other Belongings: see valuable (08/15/2016 00:36:Jaylin Boyle RN) Advance Direct for Healthcare: No, and Wants No Information (08/15/2016 00:36:Jaylin Boyle RN) Durable Power of Appliquer Zigzag: No (08/15/2016 00:36:Jaylin Boyle RN) Living Will: No (08/15/2016 00:36:Jaylin Boyle RN) Organ Donor: No (08/15/2016 00:36:Jaylin Boyle RN) Pt Rights Information Given: Yes (08/15/2016 00:36:Jaylin Boyle RN) Pt Understands Pt Rights: Yes (08/15/2016 00:36:Jaylin Boyle RN) Patient Rights Comments: given in patient access (08/15/2016 00:36:Jaylin Boyle RN) LEARNING ASSESSMENT Knowledge Level: Understands L_D Process; Understands Care Activities; Had Pre-Hospital Education; Understands Diagnosis (08/15/2016 00:36:Jaylin Boyle RN) Barriers to Learning: None (08/15/2016 00:36:Jaylin Boyle RN) Learning Readiness: Motivated (08/15/2016 00:36:Jaylin Boyle RN) Learns Best By: 1 to 1 Instruction; Reading; Videos; Group Discussion; Demonstration (08/15/2016 00:36:Jaylin Boyle RN) Learning Needs: Labor and Delivery Process; Pain Management; Symptoms to Report; Treatment Plan; Medication; Diagnosis; Nutrition; Equipment; Infant Care; Community Resources (08/15/2016 00:36:Jaylin Boyle RN) DOMESTIC VIOLANCE SCREENING Dom Viol Threatened/Hurt: No (08/15/2016 00:36:Jaylin Boyle RN) Hx of Abuse/Neglect past 2yrs: No (08/15/2016 00:36:Jaylin Boyle RN) Feel Unsafe Going Home: No (08/15/2016 00:36:Jaylin Boyle RN) Addt'l Observ Indicating Abuse: No (08/15/2016 00:36:Jaylin Boyle RN) Reason Unable to Complete Screen: No Opportunity to Talk Privately (08/15/2016 00:36:Jaylin Boyle RN) Considered Personal Harm/Suicide: No (08/15/2016 00:36:Jaylin Boyle RN) NUTRITIONAL/FUNCTIONAL SCREENING Problem with Appetite >5 Days: No (08/15/2016 00:36:Jaylin Boyle RN) Chew/Swallow Difficulties: No (08/15/2016 00:36:Jaylin Boyle RN) Inappropriate Wt Gain/Loss: No (08/15/2016 00:36:Jaylin Boyle RN) Presence Skin Breakdown/Ulcer: No (08/15/2016 00:36:Jaylin Boyle RN) Special Diet: No (08/15/2016 00:36:Jaylin Boyle RN) Pt Requests Assistant Curator Visit: No (08/15/2016 00:36:Jaylin Boyle RN) Hx of Any of the Following?: N/A (08/15/2016 00:36:Jaylin Boyle RN) New Diagnosis of: N/A (08/15/2016 00:36:Jaylin Boyle RN) Requires Assist w/Ambulation: No (08/15/2016 00:36:Jaylin Boyle RN) Uses Assist Device to Ambulate: No (08/15/2016 00:36:Jaylin Boyle RN) Pt Requires Help w/ADL's: No (08/15/2016 00:36:Jaylin Boyle RN)
--- NOTE | 2016-08-15 04:45 | L&D Flow Sheet ---
LD Flowsheet Datetime Report Generated by CPN: 08/15/2016 04:45 Datetime: 08/15/2016 03:46 NBP Sys/Aminta/Mean (mmHg): 99 (QS system process) : 57 (QS system process) : 71 (QS system process) Pulse: 111 (QS system process) LaborFlag: OB Triage (QS system process) Datetime: 08/15/2016 03:39 NBP Sys/Aminta/Mean (mmHg): 77 (QS system process) : 45 (QS system process) : 57 (QS system process) Pulse: 88 (QS system process) LaborFlag: OB Triage (QS system process) Datetime: 08/15/2016 03:32 NBP Sys/Aminta/Mean (mmHg): 76 (QS system process) : 46 (QS system process) : 56 (QS system process) Pulse: 95 (QS system process) LaborFlag: OB Triage (QS system process) Datetime: 08/15/2016 03:17 NBP Sys/Aminta/Mean (mmHg): 81 (QS system process) : 48 (QS system process) : 60 (QS system process) Pulse: 95 (QS system process) LaborFlag: OB Triage (QS system process) Datetime: 08/15/2016 03:02 NBP Sys/Aminta/Mean (mmHg): 89 (QS system process) : 51 (QS system process) : 63 (QS system process) Pulse: 86 (QS system process) Respirations: 16 (Jaylin Boyle RN) Temperature (F): 98.0 (Jaylin Boyle RN) Temperature (C): 36.7 (QS system process) Temperature Route: Oral (Jaylin Boyle RN) Pain Scale: 2 (Jaylin Boyle RN) Pain Presence: Intermittent (Jaylin Boyle RN) Pain Type: Dull (Jaylin Boyle RN) Pain Location: Back (Jaylin Boyle RN) Pain Relief Measures: Comfort Measures (Jaylin Boyle RN) LaborFlag: OB Triage (QS system process) Datetime: 08/15/2016 02:47 NBP Sys/Aminta/Mean (mmHg): 88 (QS system process) : 53 (QS system process) : 65 (QS system process) Pulse: 94 (QS system process) LaborFlag: OB Triage (QS system process) Datetime: 08/15/2016 02:33 NBP Sys/Aminta/Mean (mmHg): 91 (QS system process) : 55 (QS system process) : 67 (QS system process) Pulse: 99 (QS system process) LaborFlag: OB Triage (QS system process) Datetime: 08/15/2016 02:15 Analgesics/Sedatives: Tylenol (mg) @ (Annotations: ofirmev 1000mg ivpb) ([facility], RN) Datetime: 08/15/2016 02:14 Pulse: 118 (QS system process) SpO2 (%): 97 (QS system process) LaborFlag: OB Triage (QS system process) Datetime: 08/15/2016 02:08 Pulse: 101 (QS system process) SpO2 (%): 94 (QS system process) LaborFlag: OB Triage (QS system process) Datetime: 08/15/2016 02:03 Pulse: 99 (QS system process) SpO2 (%): 95 (QS system process) LaborFlag: OB Triage (QS system process) Datetime: 08/15/2016 02:02 NBP Sys/Aminta/Mean (mmHg): 91 (QS system process) : 53 (QS system process) : 66 (QS system process) Pulse: 100 (QS system process) LaborFlag: OB Triage (QS system process) Datetime: 08/15/2016 02:01 Pulse: 100 (QS system process) SpO2 (%): 94 (QS system process) LaborFlag: OB Triage (QS system process) Datetime: 08/15/2016 01:58 Pulse: 96 (QS system process) SpO2 (%): 95 (QS system process) LaborFlag: OB Triage (QS system process) Datetime: 08/15/2016 01:53 Pulse: 101 (QS system process) SpO2 (%): 96 (QS system process) LaborFlag: OB Triage (QS system process) Datetime: 08/15/2016 01:48 Pulse: 95 (QS system process) SpO2 (%): 96 (QS system process) LaborFlag: OB Triage (QS system process) Datetime: 08/15/2016 01:47 NBP Sys/Aminta/Mean (mmHg): 94 (QS system process) : 59 (QS system process) : 70 (QS system process) Pulse: 96 (QS system process) LaborFlag: OB Triage (QS system process) Datetime: 08/15/2016 01:43 Pulse: 104 (QS system process) SpO2 (%): 96 (QS system process) LaborFlag: OB Triage (QS system process) Datetime: 08/15/2016 01:38 Pulse: 106 (QS system process) SpO2 (%): 95 (QS system process) LaborFlag: OB Triage (QS system process) Datetime: 08/15/2016 01:37 Pulse: 106 (QS system process) SpO2 (%): 94 (QS system process) LaborFlag: OB Triage (QS system process) Datetime: 08/15/2016 01:33 Pulse: 101 (QS system process) SpO2 (%): 96 (QS system process) LaborFlag: OB Triage (QS system process) Datetime: 08/15/2016 01:32 NBP Sys/Aminta/Mean (mmHg): 90 (QS system process) : 59 (QS system process) : 70 (QS system process) Pulse: 93 (QS system process) Respirations: 16 (Jaylin Boyle RN) LaborFlag: OB Triage (QS system process) Datetime: 08/15/2016 01:31 Antibiotics: Rocephin 1 gram IVPB x 1 given post blood cultures (Jaylin Boyle RN) Datetime: 08/15/2016 01:28 Pulse: 100 (QS system process) SpO2 (%): 95 (QS system process) LaborFlag: OB Triage (QS system process) Datetime: 08/15/2016 01:27 Pulse: 95 (QS system process) SpO2 (%): 94 (QS system process) LaborFlag: OB Triage (QS system process) Datetime: 08/15/2016 01:23 Pulse: 106 (QS system process) SpO2 (%): 96 (QS system process) LaborFlag: OB Triage (QS system process) Datetime: 08/15/2016 01:21 Patient Care Comments: If BP maintains may be transfered to (Jaylin Boyle, RN) Datetime: 08/15/2016 01:19 Pulse: 100 (QS system process) SpO2 (%): 94 (QS system process) LaborFlag: OB Triage (QS system process) Datetime: 08/15/2016 01:18 Pulse: 107 (QS system process) SpO2 (%): 96 (QS system process) Comments: EFM removed per provider orders (Jaylin Boyle, RN) LaborFlag: OB Triage (QS system process) Datetime: 08/15/2016 01:17 NBP Sys/Aminta/Mean (mmHg): 86 (QS system process) : 54 (QS system process) : 66 (QS system process) Pulse: 108 (QS system process) LaborFlag: OB Triage (QS system process) Datetime: 08/15/2016 01:08 NBP Sys/Aminta/Mean (mmHg): 78 (QS system process) : 53 (QS system process) : 61 (QS system process) Pulse: 104 (QS system process) Procedures: urine specimen obtained for urinalysis, urine culture, and urine drug screen. (Jaylin Boyle RN) LaborFlag: OB Triage (QS system process) Datetime: 08/15/2016 01:05 Antiemetics/Antacids: Pepcid IV (mg) @ (Annotations: 20) (Jaylin Boyle, RN) Datetime: 08/15/2016 01:04 Antiemetics/Antacids: Zofran IV (mg) @ (Annotations: 4) (Jaylin Anaann, RN) Datetime: 08/15/2016 00:50 I/O Interventions: Up to BR (Jaylin Jessicasmann, RN) Datetime: 08/15/2016 00:46 Pulse: 115 (QS system process) SpO2 (%): 97 (QS system process) LaborFlag: OB Triage (QS system process) Datetime: 08/15/2016 00:41 Pulse: 108 (QS system process) SpO2 (%): 96 (QS system process) LaborFlag: OB Triage (QS system process) Datetime: 08/15/2016 00:37 Pulse: 104 (QS system process) SpO2 (%): 94 (QS system process) LaborFlag: OB Triage (QS system process) Datetime: 08/15/2016 00:36 Pulse: 107 (QS system process) SpO2 (%): 95 (QS system process) LaborFlag: OB Triage (QS system process) Datetime: 08/15/2016 00:32 NBP Sys/Aminta/Mean (mmHg): 94 (QS system process) : 69 (QS system process) : 78 (QS system process) Pulse: 105 (QS system process) LaborFlag: OB Triage (QS system process) Datetime: 08/15/2016 00:31 Pulse: 111 (QS system process) SpO2 (%): 95 (QS system process) LaborFlag: OB Triage (QS system process) Datetime: 08/15/2016 00:30 Monitor Mode: External; Palpation (Jaylin Kossmann, RN) Frequency (min): x2 (Jaylin Jessicasmann, RN) Quality: Mild (Jaylin Kossmann, RN) Duration (sec): 40-50 (Jaylin Kossmann, RN) Resting Tone (Palpate): Relaxed (Jaylin Kossmann, RN) Monitor Mode: External US (Jaylin Kossmann, RN) FHR Baseline Rate : 135 (Jaylin Kossmann, RN) Variability: Moderate 6-25 bpm (Jaylin Kossmann, RN) Accelerations: 15X15 (Jaylin Kossmann, RN) Decelerations: None (Jaylin Kossmann, RN) Datetime: 08/15/2016 00:26 Pulse: 111 (QS system process) SpO2 (%): 95 (QS system process) LaborFlag: OB Triage (QS system process) Datetime: 08/15/2016 00:21 Pulse: 113 (QS system process) SpO2 (%): 96 (QS system process) LaborFlag: OB Triage (QS system process) Datetime: 08/15/2016 00:17 NBP Sys/Aminta/Mean (mmHg): 100 (QS system process) : 61 (QS system process) : 75 (QS system process) Pulse: 101 (QS system process) LaborFlag: OB Triage (QS system process) Datetime: 08/15/2016 00:16 Pulse: 103 (QS system process) SpO2 (%): 95 (QS system process) LaborFlag: OB Triage (QS system process) Datetime: 08/15/2016 00:12 NBP Sys/Aminta/Mean (mmHg): 104 (QS system process) : 61 (QS system process) : 77 (QS system process) Pulse: 108 (QS system process) LaborFlag: OB Triage (QS system process) Datetime: 08/15/2016 00:11 Pulse: 108 (QS system process) SpO2 (%): 95 (QS system process) LaborFlag: OB Triage (QS system process) Datetime: 08/15/2016 00:09 Pulse: 108 (QS system process) SpO2 (%): 94 (QS system process) LaborFlag: OB Triage (QS system process) Datetime: 08/15/2016 00:07 NBP Sys/Aminta/Mean (mmHg): 103 (QS system process) : 72 (QS system process) : 84 (QS system process) Pulse: 116 (QS system process) LaborFlag: OB Triage (QS system process) Datetime: 08/15/2016 00:06 Pulse: 112 (QS system process) SpO2 (%): 94 (QS system process) LaborFlag: OB Triage (QS system process) Datetime: 08/15/2016 00:04 Pulse: 100 (QS system process) SpO2 (%): 93 (QS system process) LaborFlag: OB Triage (QS system process) Datetime: 08/15/2016 00:02 NBP Sys/Aminta/Mean (mmHg): 96 (QS system process) : 57 (QS system process) : 70 (QS system process) Pulse: 110 (QS system process) LaborFlag: OB Triage (QS system process) Datetime: 08/15/2016 00:01 Pulse: 108 (QS system process) SpO2 (%): 96 (QS system process) Monitor Mode: External; Palpation (Jaylin Boyle, RN) Frequency (min): none (Jaylin Boyle, RN) Resting Tone (Palpate): Relaxed (Jaylin Boyle RN) Monitor Mode: External US (Jaylin Boyle, RN) FHR Baseline Rate : 140 (Jaylin Boyle, RN) Variability: Moderate 6-25 bpm (Jaylin Boyle, RN) Accelerations: 15X15 (Jaylin Boyle, RN) Decelerations: None (Jaylin Boyle, RN) LaborFlag: OB Triage (QS system process) Datetime: 08/15/2016 00:00 Instructional Method: Verbal; Patient Instructed; Family/Support Person Instructed; Verbalized Understanding (Jaylin Boyle RN) Plan of Care: Plan of Care Discussed (Jaylin Boyle RN) Unit Routine: [place] to Room; Call [place]; Bed; Visiting Policy; Unit Personnel; Consents Signed; Handwashing; Monitoring; IV Pumps; Medications (Jaylin Boyle RN) Pain Management: IV Narcotics; PRN Medications; Pain Scale/Goals; Comfort Measures (Jaylin Boyle RN) Medications: Antibiotics; IV Narcotics (Jaylin Boyle RN) Datetime: 08/14/2016 23:57 NBP Sys/Aminta/Mean (mmHg): 106 (QS system process) : 65 (QS system process) : 81 (QS system process) Pulse: 109 (QS system process) LaborFlag: OB Triage (QS system process) Datetime: 08/14/2016 23:56 Pulse: 106 (QS system process) SpO2 (%): 96 (QS system process) LaborFlag: OB Triage (QS system process) Datetime: 08/14/2016 23:52 NBP Sys/Aminta/Mean (mmHg): 102 (QS system process) : 56 (QS system process) : 78 (QS system process) Pulse: 110 (QS system process) Procedures: Stat bedside EKG performed. Dr. Bueno reviewed. (Jaylin Boyle RN) LaborFlag: OB Triage (QS system process) Datetime: 08/14/2016 23:51 Pulse: 111 (QS system process) SpO2 (%): 96 (QS system process) Procedures: Lab at bedside. STAT CBC, CMP, and Blood cultures x 2 drawn (Jaylin Boyle RN) LaborFlag: OB Triage (QS system process) Datetime: 08/14/2016 23:47 NBP Sys/Aminta/Mean (mmHg): 117 (QS system process) : 72 (QS system process) : 89 (QS system process) Pulse: 108 (QS system process) LaborFlag: OB Triage (QS system process) Datetime: 08/14/2016 23:46 Pulse: 117 (QS system process) SpO2 (%): 96 (QS system process) LaborFlag: OB Triage (QS system process) Datetime: 08/14/2016 23:42 NBP Sys/Aminta/Mean (mmHg): 109 (QS system process) : 68 (QS system process) : 81 (QS system process) Pulse: 106 (QS system process) LaborFlag: OB Triage (QS system process) Datetime: 08/14/2016 23:41 Pulse: 103 (QS system process) SpO2 (%): 96 (QS system process) LaborFlag: OB Triage (QS system process) Datetime: 08/14/2016 23:37 NBP Sys/Aminta/Mean (mmHg): 109 (QS system process) : 75 (QS system process) : 87 (QS system process) Pulse: 114 (QS system process) Level of Consciousness: Fully Conscious (Jaylin Boyle RN) DTR's/Clonus: DTRs 2+; No Clonus (Jaylin Boyle RN) Headache: Generalized (Jaylin Boyle RN) Breath Sounds, Left: Clear and Equal (Jaylin Boyle RN) Breath Sounds, Right: Clear and Equal (Jaylin Boyle RN) Nausea/Vomiting: Present (Annotations: patient states that she has vomitted five times in the last hour ) (Jaylin Boyle RN) RUQ Epigastric Pain: Denies (Jaylin Boyle RN) LaborFlag: OB Triage (QS system process) Datetime: 08/14/2016 23:36 Pulse: 121 (QS system process) SpO2 (%): 98 (QS system process) LaborFlag: OB Triage (QS system process) Datetime: 08/14/2016 23:32 NBP Sys/Aminta/Mean (mmHg): 106 (QS system process) : 74 (QS system process) : 80 (QS system process) Pulse: 108 (QS system process) LaborFlag: OB Triage (QS system process) Datetime: 08/14/2016 23:31 Pulse: 110 (QS system process) SpO2 (%): 96 (QS system process) LaborFlag: OB Triage (QS system process) Datetime: 08/14/2016 23:30 Monitor Mode: External; Palpation (Jaylin Jessicasmann, RN) Frequency (min): none (Jaylin Kossmann, RN) Resting Tone (Palpate): Relaxed (Jaylin Kossmann, RN) Monitor Mode: External US (Jaylin Jessicasmann, RN) FHR Baseline Rate : 135 (Jaylin Kossmann, RN) Variability: Moderate 6-25 bpm (Jaylin Kossmann, RN) Accelerations: 15X15 (Jaylin Kossmann, RN) Decelerations: None (Jaylin Kossmann, RN) Datetime: 08/14/2016 23:27 NBP Sys/Aminta/Mean (mmHg): 110 (QS system process) : 77 (QS system process) : 89 (QS system process) Pulse: 111 (QS system process) LaborFlag: OB Triage (QS system process) Datetime: 08/14/2016 23:26 Pulse: 108 (QS system process) SpO2 (%): 95 (QS system process) LaborFlag: OB Triage (QS system process) Datetime: 08/14/2016 23:23 NBP Sys/Aminta/Mean (mmHg): 107 (QS system process) : 68 (QS system process) : 82 (QS system process) Pulse: 111 (QS system process) LaborFlag: OB Triage (QS system process) Datetime: 08/14/2016 23:21 Pulse: 114 (QS system process) SpO2 (%): 96 (QS system process) LaborFlag: OB Triage (QS system process) Datetime: 08/14/2016 23:19 Comments: maternal heart rate tracing, broken tracing (Jaylin Jessicasmann, RN) Datetime: 08/14/2016 23:18 IV/Blood Work: IV Started; IV Bolus Started; IV Bolus Given ml @ 1000 (Jaylin Jessicarandeeann, RN) Datetime: 08/14/2016 23:17 NBP Sys/Aminta/Mean (mmHg): 69 (QS system process) : 41 (QS system process) : 50 (QS system process) Pulse: 125 (QS system process) Pulse: 120 (QS system process) SpO2 (%): 94 (QS system process) LaborFlag: OB Triage (QS system process) Datetime: 08/14/2016 23:16 Pulse: 128 (QS system process) SpO2 (%): 95 (QS system process) LaborFlag: OB Triage (QS system process) Datetime: 08/14/2016 23:13 Communication Comments: Dr. Bueno notified of patients blood pressure (Jaylin Boyle, RN) Datetime: 08/14/2016 23:12 NBP Sys/Aminta/Mean (mmHg): 70 (QS system process) : 47 (QS system process) : 55 (QS system process) Pulse: 123 (QS system process) Respirations: 20 (Jaylin Boyle RN) Temperature (F): 98.1 (Jaylin Boyle RN) Temperature (C): 36.7 (QS system process) Temperature Route: Oral (Jaylin Boyle RN) Pain Scale: 5 (Jaylin Boyle RN) Pain Presence: Intermittent (Jaylin Boyle RN) Pain Type: Contraction (Jaylin Boyle, RN) Pain Location: Abdomen; Back; Head (Jaylin Boyle, RN) Patient Care Comments: patient instructed to deep breathe, plans for IV (Jaylin Boyle, RN) Additional Nursing Comments: Report given to Dr. Bueno. Provider aware of pt BP and symptoms. Per provider pt to have stat CBC, CMP, blood cultures, urine culture, IV LR bolus (Meg Phillip RN) LaborFlag: OB Triage (QS system process) Datetime: 08/14/2016 23:11 Pulse: 126 (QS system process) SpO2 (%): 95 (QS system process) Patient Position/Activity: Right Lateral (Jaylin Boyle RN) Patient Care Comments: patient states that she feels dizzy and like she is going to pass out (Jaylin Boyle, MIRIAM) LaborFlag: OB Triage (QS system process)
--- NOTE | 2016-08-15 04:45 | Antepartum Discharge Summary ---
Antepartum DC Datetime Report Generated by CPN: 08/15/2016 04:45 DIET/ACTIVITY/RESTRICTIONS Diet: Regular (08/14/2016 15:04:Eleonora Agatha, RN) Activity: Normal Activity (08/14/2016 15:04:Eleonora Agatha, RN) TEACHING/INSTRUCTIONS/REFERRALS Instructions Given To: Patient (08/14/2016 15:04:Eleonora Agatha, RN) Instructions Understood: Patient Verbalized Understanding; Support Person Verbalized Understanding (08/14/2016 15:04:Eleonora Agatha, RN) Referrals: None (08/14/2016 15:04:Eleonora Snider RN) Educational Materials- Other: kick counts, early labor (08/14/2016 15:04:Eleonora Snider RN) DISCHARGE INFORMATION Discharged AMA: No (08/14/2016 15:04:Eleonora Snider RN) Discharge Date/Time: 08/14/2016 14:59 (08/14/2016 15:04:Eleonora Snider RN) Discharged To: Home (08/14/2016 15:04:Eleonora Snider RN) Discharge Provider Name: Leonie Steele CNM (08/14/2016 15:04:Eleonora Snider RN) Discharge Method: Ambulatory (08/14/2016 15:04:Eleonora Snider RN) Condition: Stable (08/14/2016 15:04:Eleonora Snider RN) FOLLOW UP INFORMATION Follow Up With: [facility] (08/14/2016 15:04:Eleonora Snider RN) Follow Up On: As Scheduled (08/14/2016 15:04:Eleonora Snider RN) Follow Up Phone Number: [facility] - (08/14/2016 15:04:Eleonora Snider RN) Comments: Patient instructed to stay hydrated and to take antibiotics as prescribed (08/14/2016 15:04:Eleonora Snider RN)
[2016-08-15] MEDS: CEFTRIAXONE 1 GM/D5W RTU 50 ML IV SCH (09:40)
[2016-08-15] MEDS: FAMOTIDINE INJ/PF 20 MG/2 ML SDV IV SCH (09:41)
[2016-08-15] MEDS: ACETAMINOPHEN WITH CODEINE #3 TABLET PO PRN ×2 (10:44→22:50)
--- NOTE | 2016-08-15 12:37 | EKG REPORT ---
SEVERITY:- BORDERLINE ECG - SINUS TACHYCARDIA PROBABLE LEFT ATRIAL ABNORMALITY : Confirmed by: Oliverio Masters 15-Aug-2016 12:37:12
[2016-08-16] MEDS: RINGERS SOLUTION,LACTATED 1,000 ML IV PRN (03:36)
[2016-08-16] MEDS: ACETAMINOPHEN WITH CODEINE #3 TABLET PO PRN (05:48)
[2016-08-16] MEDS: CEFTRIAXONE 1 GM/D5W RTU 50 ML IV SCH (09:26)
[2016-08-16] MEDS: FAMOTIDINE INJ/PF 20 MG/2 ML SDV IV SCH (09:27)
[2016-08-16] MEDS ORDERED: FERROUS SULFATE 325 MG TABLET PO SCH (10:00)
[2016-08-16 10:06] VITALS: BP 122/84
--- NOTE | 2016-08-16 10:11 | PDOC DISCHARGE SUMMARY ---
General - Admit/Disc Date/PCP Admission Date/Primary Care Provider: 08/14/16 23:29 RANDA RILEY MD Discharge Date: 08/16/16 - Discharge Diagnosis (1) Pyelonephritis Is this a current diagnosis for this admission?: Yes - Additional Information Resuscitation Status: Full Code Discharge Activity: Activity As Tolerated, Balance Activity w/Rest Home Medications: Cephalexin Monohydrate [Keflex 500 mg Capsule] 1 tab PO TID 08/15/16 [id number]/FA/Omega3/Dha/Fish Oil [ Gummies] 1 tab PO DAILY 08/15/16 Ferrous Sulfate [Feosol 325 mg Tablet] 325 mg PO DAILY #30 tablet 08/16/16 History of Present Illness Patient complains of: back pain with vomiting, known uti on keflex History of Present Illness: Patient presented with known uti after feeling much worse with increased back pain and vomiting. She is unsure of fever. Patient has history of recurrent pyelo while . wellbeing reassuring on monitoring. Initial hypotension resolved with iv fluids. Paitent started on iv antibiotics Hospital Course Hospital Course: 25yo patient at 35 weeks with recurrent pyelonephritis. Patient was started on keflex with in 24 hours prior to returning to hospital with hypotention and tachycardia. These symptoms resolved with iv fluids. Patient also received iv Rocephin and antiemetics. Back pain intially treated with morphine but decreased significantly over 24 hours. Blood and urine cultures preliminarily neg (though pt on keflex when drawn). Patient discharged to home in stable condition Physical Exam - Physical Exam Vital Signs: Temp Pulse Resp BP Pulse Ox 98.4 F 84 12 96/52 L 97 08/16/16 03:39 08/16/16 03:39 08/16/16 03:39 08/16/16 03:39 08/16/16 03:39 Intake & Output 08/15/16 08/16/16 08/17/16 06:59 06:59 06:59 Intake Total 1000 Output Total 400 Balance 600 Weight 77 kg General appearance: PRESENT: no acute distress, cooperative Respiratory exam: PRESENT: clear to auscultation holden Cardiovascular exam: PRESENT: RRR GI/Abdominal exam: PRESENT: normal bowel sounds, soft. ABSENT: distended, guarding, mass, organolmegaly, rebound, tenderness Extremities exam: PRESENT: full ROM. ABSENT: calf tenderness, clubbing, pedal edema Result Laboratory Results: 08/14/16 23:51 08/14/16 23:51 Plan Discharge Plan: discharge to home. continue keflex prescription until completed then restart Macrobid suppression. Follow up in office tomorrow as scheduled
== END 2016-08-16 12:15 | disposition home or self-care (01) | DRG 781 ==
LOC: LC 22:43 → LR 23:29 → OBSVTOIN 23:30 → 2S 08-15 03:58 → 2N 08-15 16:46
PROVIDERS: ADMIT Obstetrics & Gynecology; ATTEND Obstetrics & Gynecology
DX: O23.03 Infections of kidney in pregnancy, third trimester (principal); O99.333 Smoking (tobacco) complicating pregnancy, third trimester; F17.210 Nicotine dependence, cigarettes, uncomplicated; O34.211 Maternal care for low transverse scar from previous cesarean delivery; N85.8 Other specified noninflammatory disorders of uterus; Z3A.35 35 weeks gestation of pregnancy
CPT/HCPCS: 36415; 59025; 80053; 80307; 81001; 85025; 87040; 87086; 93005; 93010; 94760; J0131; J0696; J2405; J7120; S0028

== ENCOUNTER 2016-09-10 05:05 | Inpatient (IN) | payer MEDICAID ==
[2016-09-08 11:28] LABS: ABSOLUTE BASOPHILS # (AUTO) 0.1 10^3/uL (0.0-0.2); ABSOLUTE EOSINOPHILS # (AUTO) 0.1 10^3/uL (0.0-0.6); ABSOLUTE LYMPHOCYTES (AUTO) 2.3 10^3/uL (0.5-4.7); ABSOLUTE MONOCYTES (AUTO) 0.8 10^3/uL (0.1-1.4); ABSOLUTE NEUT (AUTO) 13.3 10^3/uL (1.7-8.2); BASOPHILS % (AUTO) 0.5 % (0-2); EOSINOPHILS % (AUTO) 0.6 % (0-6); HEMATOCRIT 32.1 % (36.0-47.0); HEMOGLOBIN 10.9 g/dL (12.0-15.5); HGB HCT DIFFERENCE 0.6; LYMPHOCYTES % (AUTO) 13.7 % (13-45); MEAN CORPUSCULAR HEMOGLOBIN 28.8 pg (27.0-33.4); MEAN CORPUSCULAR HGB CONC 33.8 g/dL (32.0-36.0); MEAN CORPUSCULAR VOLUME 85 fl (80-97); MONOCYTES % (AUTO) 5.1 % (3-13); RED BLOOD COUNT 3.77 10^6/uL (3.72-5.28); RED CELL DISTRIBUTION WIDTH 14.3 % (11.5-14.0); SEGMENTED NEUTROPHILS % (AUTO) 80.1 % (42-78); WHITE BLOOD COUNT 16.5 10^3/uL (4.0-10.5)
[2016-09-08 11:33] LABS: APPEARANCE,URINE SLIGHTLY-CLOUDY; BILIRUBIN,URINE NEGATIVE (NEGATIVE); GLUCOSE, URINE NEGATIVE (NEGATIVE); KETONES,URINE NEGATIVE (NEGATIVE); LEUKOCYTE ESTERASE,URINE MODERATE (NEGATIVE); NITRITE,URINE NEGATIVE (NEGATIVE); PROTEIN,URINE 30 mg/dL (NEGATIVE); UROBILINOGEN,URINE NEGATIVE mg/dL (<2.0)
[2016-09-08 11:48] LABS: URINE BARBITURATES SCREEN NEGATIVE; URINE METHADONE SCREEN NEGATIVE; URINE OPIATES LOW NEGATIVE; URINE PHENCYCLIDINE SCREEN NEGATIVE
[~2016-09-10 05:05] MED LIST: CEFAZOLIN 1 GM/D5W RTU 1 GM/50 ML RTUPB IV PRN; LACTATED RINGERS 1000 ML IV PRN; LIDOCAINE 0.5% INJ-PF (5 MG/ML) 50 ML SDV SUBCUT PRN; RINGERS SOLUTION,LACTATED 1,000 ML IV PRN
[2016-09-10] MEDS ORDERED: OXYTOCIN 10 UNIT/ML VIAL ONE (07:29)
[2016-09-10] MEDS ORDERED: FENTANYL CITRATE INJ/PF 100 MCG/2 ML AMPUL ONE (07:29)
[2016-09-10] MEDS ORDERED: MIDAZOLAM 2 MG/2 ML INJ ONE (07:30)
[2016-09-10] MEDS ORDERED: EPHEDRINE SULFATE INJ 50 MG/1 ML AMPULE ONE (07:30)
[2016-09-10] MEDS ORDERED: OXYTOCIN/NORMAL SALINE 20 UNIT/1,000 ML RTUINJ ONE ×2 (07:30→18:28)
[2016-09-10] MEDS ORDERED: METHYLERGONOVINE MALEATE INJ/PF 0.2 MG/1 ML AMPULE ONE (07:30)
[2016-09-10] MEDS ORDERED: ACETAMINOPHEN 100 ML IV ONE (07:30)
[2016-09-10] MEDS ORDERED: FENTANYL CITRATE INJ/PF 100 MCG/2 ML AMPUL IV PRN ×3 (07:50)
[2016-09-10] MEDS ORDERED: MEPERIDINE HCL/PF INJ 25 MG/1 ML DISP.SYRIN IV PRN (07:50)
[2016-09-10] MEDS ORDERED: PROMETHAZINE HCL INJ 25 MG/1 ML VIAL IV PRN ×2 (07:50)
[2016-09-10] MEDS ORDERED: OXYCODONE-ACETAMINOPHEN 5-325 MG TABLET PO PRN ×2 (07:50)
[2016-09-10] MEDS ORDERED: ONDANSETRON HCL INJ/PF 4 MG/2 ML SDV IV PRN (07:50)
[2016-09-10] MEDS ORDERED: DIPHENHYDRAMINE HCL 50 MG/ML VIAL IV PRN (07:50)
[2016-09-10] MEDS ORDERED: MORPHINE SULFATE 10 MG/ML INJ IV PRN ×2 (07:50→10:01)
--- NOTE | 2016-09-10 09:28 | OPERATIVE REPORT E ---
Operative Report NAME: SHIMA SARMIENTO : 1990 AGE: 25Y DATE OF SURGERY: 09/10/2016 ROOM: 222 PREOPERATIVE DIAGNOSES: 1. Intrauterine at 39 plus weeks. 2. Previous , desires repeat. POSTOPERATIVE DIAGNOSES: 1. Intrauterine at 39 plus weeks. 2. Previous , desires repeat. PROCEDURE: A low transverse hysterotomy section. SURGEON: PALAK DE LA O M.D. ANESTHESIA: Dr. Stringer with a spinal. FINDINGS: A male infant in cephalic presentation. Apgars are unknown at the time of dictation. COMPLICATIONS: None. ESTIMATED BLOOD LOSS: Six-hundred mL. SPECIMENS REMOVED: None. PROCEDURE IN DETAIL: The patient was taken to the operating room, prepared, and draped in normal sterile fashion in supine position with a leftward tilt. A transverse skin incision was made following patient's previous scar. This is done with a 10-blade scalpel and carried through the underlying layer of fascia with the same scalpel. The fascia was excised and extended laterally with Hollins scissors. The fascia was then elevated and dissected from the rectus muscles sharply with Annalise, both superiorly and inferiorly. The rectus muscle was divided. The peritoneal cavity was entered sharply with Metzenbaums. The peritoneal cavity was then divided with good visualization of the bladder and the uterus. There were significant bladder adhesions noted. The bladder blade was inserted and the hysterotomy was nicked well above the bladder. Bladder reflection with the scalpel and extended laterally with surgeon finger fracture. The infant was then delivered atraumatically. The nose and mouth were suctioned with the suction bulb and the cord was clamped and cut and handed off to awaiting pediatricians. Cord blood was collected and the placenta was removed manually. The uterus was exteriorized easily and cleared of clots and debris. The hysterotomy was closed with 0 Monocryl in a running locked fashion. A second layer of the same suture was used for imbrication to ensure hemostasis. A small amount of bleeding was noted at the hysterotomy site and this was tied off with a [id number] with Monocryl as well. The uterus was returned to the abdomen. The peritoneal cavity was cleared of clots and debris and the peritoneum and the rectus muscle was reapproximated with a mattress stitch of 2-0 Chromic. The fascia was closed with 0 Vicryl. The subcutaneous layer was closed with plain catgut and the skin was closed with 4-0 Vicryl. Patient tolerated the procedure well. Sponge, lap, and needle counts were correct x2. Patient was taken to recovery in stable condition. DICTATING PHYSICIAN: PALAK DE LA O M.D. [id number] PHY#: [id number] ID: [id number] JOB#: [id number] ACCT: [id number] cc:PALAK DE LA O M.D. >
[2016-09-10] MEDS ORDERED: DIPH/PERTUSS(ACELL)/TETANUS VAC/PF 0.5 ML SYR (>=10YO) IM PRN (10:01)
[2016-09-10] MEDS ORDERED: ACETAMINOPHEN 325 MG TABLET PO PRN (10:01)
[2016-09-10] MEDS ORDERED: MEASLES,MUMPS&RUBELLA VACC/PF 0.5 ML VIAL SUBCUT PRN (10:01)
[2016-09-10] MEDS ORDERED: PROMETHAZINE HCL INJ 25 MG/1 ML VIAL IM PRN (10:01)
[2016-09-10] MEDS ORDERED: OXYTOCIN/NORMAL SALINE 20 UNIT/1,000 ML RTUINJ INJ PRN (10:01)
[2016-09-10] MEDS ORDERED: SIMETHICONE 80 MG TAB.CHEW PO PRN (10:01)
[2016-09-10] MEDS ORDERED: RINGERS SOLUTION,LACTATED 1,000 ML IV PRN (10:03)
[2016-09-10] MEDS ORDERED: ONDANSETRON HCL INJ/PF 4 MG/2 ML SDV ONE (10:47)
[2016-09-10 11:25] LABS: HEMATOCRIT 27.1 % (36.0-47.0); HEMOGLOBIN 9.3 g/dL (12.0-15.5); HGB HCT DIFFERENCE 0.8; MEAN CORPUSCULAR HEMOGLOBIN 29.6 pg (27.0-33.4); MEAN CORPUSCULAR HGB CONC 34.2 g/dL (32.0-36.0); MEAN CORPUSCULAR VOLUME 87 fl (80-97); RED BLOOD COUNT 3.14 10^6/uL (3.72-5.28); RED CELL DISTRIBUTION WIDTH 14.3 % (11.5-14.0); WHITE BLOOD COUNT 16.8 10^3/uL (4.0-10.5)
[2016-09-10] MEDS: FENTANYL CITRATE INJ/PF 100 MCG/2 ML AMPUL ONE ×2 (12:09→14:03)
[2016-09-10 13:13] LABS: MAGNESIUM 1.6 mg/dL (1.6-2.3); POTASSIUM 4.1 mmol/L (3.6-5.0)
[2016-09-10] MEDS: IBUPROFEN 800 MG TABLET PO SCH ×2 (13:49→23:57)
--- NOTE | 2016-09-10 14:27 | EKG REPORT ---
SEVERITY:- ABNORMAL ECG - SINUS RHYTHM MULTIPLE VENTRICULAR PREMATURE COMPLEXES BORDERLINE PROLONGED QT INTERVAL : Confirmed by: Oliverio Masters 10-Sep-2016 14:26:18
[2016-09-10] MEDS ORDERED: DOCUSATE SODIUM 100 MG CAPSULE PO SCH (18:00)
[2016-09-10] MEDS ORDERED: RINGERS SOLUTION,LACTATED 1,000 ML IV ONE (21:45)
[2016-09-10] MEDS: OXYCODONE-ACETAMINOPHEN 5-325 MG TABLET PO PRN (21:53)
--- NOTE | 2016-09-10 22:23 | CONSULTATION REPORT E ---
Consultation Report NAME: SHIMA SARMIENTO : 1990 AGE: 25Y DATE: 09/10/2016 222 A TO: CONCHIS RAND M.D. FROM: Requesting Physician NOTE: The patient was seen from 1:30 p.m. to 2 p.m. REASON FOR CONSULTATION: Frequent PVCs. HISTORY OF PRESENT ILLNESS: The patient is a 24-year-old female who just had a and was found to have frequent PVCs. The patient is asymptomatic with that. She denies any dizziness, shortness of breath, chest pain, or presyncope or syncope. She has no history of congestive heart failure. The patient denies any palpitations. There is no PND or orthopnea. There is no leg edema. PAST MEDICAL HISTORY: Negative for hypertension, negative for diabetes mellitus, negative for thyroid disease, negative for congenital heart disease, negative for chronic kidney disease, negative for asthma or COPD. There is no history of sleep apnea. There is no history of seizures. PAST SURGICAL HISTORY: This is the second that the patient is having. FAMILY HISTORY: Positive for coronary artery disease in her sister and also in the parents. ALLERGIES: She has no known allergies. SOCIAL HISTORY: The patient is a smoker; she is trying to quit. There is no history of EtOH abuse. CODE STATUS: The patient is a FULL CODE. REVIEW OF SYSTEMS: CONSTITUTIONAL: Denies any fever, chills or rigors and denies headaches or dizziness. HEENT: Eyes: No history of amblyopia or diplopia. No history of amaurosis fugax. Ears: No history of tinnitus and no history of recurrent ear infections, no history of hearing loss. Nose: No history of hay fever, no history of nose bleeds, no history of nasal polyps. Mouth: No history of altered taste sensation, no history of ulcers in the mouth, no bleeding from the gums. Throat: No history of redness in the oropharynx, no exudates. SKIN: There are no skin rashes. There is no pruritus. There is no psoriasis. There is no yellowish discoloration of the skin. NECK: Without any swelling. There is no lymphadenopathy. There is no goiter. LUNGS: No history of cough or wheezing. No history of COPD or asthma. No history of pulmonary embolism. No hemoptysis. No history of pleuritic chest pain. CARDIAC: No history of hypertension. No history of coronary artery disease or anginal symptoms or [place]. No history of palpitations although the patient has frequent PVCs, some bigeminal which are now getting better. There is no dizziness or syncope. There are no palpitations. There is no PND, orthopnea or leg edema. GASTROINTESTINAL: The patient has no history of fatty food intolerance. She has some abdominal pain due to . There is no history of altered bowel movements or history of GI bleed. RENAL: No history of chronic kidney disease. No history of symptoms of UTI. No history of hematuria, polyuria or dysuria. MUSCULOSKELETAL: Denies arthritis or collagen vascular disease. CENTRAL NERVOUS SYSTEM: No history of seizures, headaches or migraines. No history of TIA or CVA. PSYCHIATRIC: No history of anxiety or depression. No history of homicidal ideation. No history of suicidal ideation. VASCULAR: No history of calf or buttock claudication. No history of DVT. HEMATOLOGICAL: No history of bleeding diathesis. No history of clotting disorders. MEDICATIONS: Medication administration record reviewed completely. She is just on pain medication right now, that is oxycodone 2 tablets p.o. q.4 h. Earlier she did get oxytocin. She is also on promethazine 25 mg IM q.6 h. p.r.n. PHYSICAL EXAMINATION: GENERAL: Patient is slightly obese, in no acute distress except for some mild abdominal pain due to the . She is well groomed. VITAL SIGNS: She is afebrile with a temperature of 98 degrees Fahrenheit. Pulse is 76 beats per minute, blood pressure 107/60, respirations 15 per minute, 02 sats are 98% on room air. HEENT: Head is atraumatic, normocephalic. Eyes: Pupils are equal, round, regular, reactive to light and accommodation. Extraocular movements are normal. There is no conjunctival pallor. There is no scleral icterus. Ears: Tympanic membranes are intact. External auditory canals are clear. There are no lesions on the pinna. Nose: There is no deviated nasal septum. There is no inflammation of the mucous membranes. Mouth: Mucous membranes of the mouth are moist. Tongue is moist. There are no ulcers in the mouth. There is no bleeding from the gums. Throat: There is no redness of the oropharynx. There is no exudate. SKIN: There are no skin rashes. There is no petechia or ecchymosis. There are no skin lesions. NECK: Supple. There is no JVD. Carotids are equal. There is no bruit. There is no goiter. There is no lymphadenopathy. LUNGS: Clear to auscultation and percussion. HEART: S1 and S2 are heard. There is no S3 gallop. There is no S4 gallop. There is a systolic murmur questionable mitral regurge. There is no aortic stenosis and no aortic regurgitation murmur. There is no rub. ABDOMEN: Soft, slightly tender at the site of , but otherwise bowel sounds are normal. There is no rebound, guarding or rigidity. EXTREMITIES: Femorals are diminished. There are no femoral bruits. Leg pulses are well felt. There is no cyanosis or clubbing. There is no pedal edema. There is no calf tenderness. CENTRAL NERVOUS SYSTEM: The patient is conscious, awake, alert, oriented x3 with no focal deficits. PSYCHIATRIC: The patient's judgment and insight are intact. Her affect is normal. DIAGNOSTIC TEST RESULTS: Since the patient has frequent PVCs, I have asked them to get a potassium and magnesium. Earlier this morning, her WBC was 16.8, her hemoglobin was 9.3, hematocrit was 27.1, and platelet count was 206,000, and potassium was normal at 4.1, magnesium was normal at 1.6. Her EKG shows sinus rhythm, multiple PVCs, borderline prolonged QT interval. IMPRESSION: 1. Asymptomatic PVCs. 2. Systolic murmur. 3. Tobacco abuse. 4. Recent section. This is the second one for the patient. RECOMMENDATIONS: The patient has no history of congestive heart failure, syncope or palpitations. Clinically there are no signs of heart failure, hence, would send the patient back to , and I will recheck the patient in the morning. Later on the patient can get an echo to assess the systolic murmur. All this was discussed with the patient, the patient's mother, and other relatives. I also discussed with the medical videographer and also with the anesthesiologist and coordination of care given. Note the patient *------* anesthesia and got only a little bit of epinephrine intrathecally. The patient is reassured. NOTE: More than 50% of the time spent on this case, and this seems to be no complexity case, since it is straightforward and at present, no treatment is required. We will follow the patient up in the morning and later get an outpatient echocardiogram. Thirty minutes spent on this patient with more than 50% of the time spent on direct patient care. The medications were reviewed. At present she does not need any cardiac medications. She is asymptomatic. The patient counseled on stop smoking cessation of 5 minutes. The patient states that she wants to quit smoking. DICTATING PHYSICIAN: CONCHIS RAND M.D. [id number] PHY#: [id number] ID: [id number] JOB#: [id number] ACCT: [id number] cc:CONCHIS RAND M.D. >
[2016-09-11] MEDS: IBUPROFEN 800 MG TABLET PO SCH (05:29)
[2016-09-11 07:14] LABS: HEMATOCRIT 25.2 % (36.0-47.0); HEMOGLOBIN 8.6 g/dL (12.0-15.5); HGB HCT DIFFERENCE 0.6; MEAN CORPUSCULAR HEMOGLOBIN 29.3 pg (27.0-33.4); MEAN CORPUSCULAR HGB CONC 34.2 g/dL (32.0-36.0); MEAN CORPUSCULAR VOLUME 86 fl (80-97); RED BLOOD COUNT 2.94 10^6/uL (3.72-5.28); RED CELL DISTRIBUTION WIDTH 14.2 % (11.5-14.0); WHITE BLOOD COUNT 12.3 10^3/uL (4.0-10.5)
--- NOTE | 2016-09-11 09:40 | EKG REPORT ---
SEVERITY:- ABNORMAL ECG - SINUS RHYTHM VENTRICULAR TRIGEMINY : Confirmed by: Oliverio Masters 11-Sep-2016 09:40:27
--- NOTE | 2016-09-11 09:46 | PDOC PROGRESS REPORT ---
Subjective-OB Subjective: Post Delivery Day: 25 year old. Denies any needs at this time. No dizziness or lightheadedness when ambulating. Physical Exam (OB) Vital Signs: Temp Pulse Resp BP Pulse Ox 98.0 F 76 16 93/49 L 98 09/11/16 07:47 09/11/16 07:47 09/11/16 07:47 09/11/16 07:47 09/11/16 07:47 Intake & Output 09/10/16 09/11/16 09/12/16 06:59 06:59 06:59 Intake Total 5250 Output Total 3805 Balance 1445 Weight 78.02 kg - Dressing Removed: Yes Incision: Dressing, Well Approximated Closure Type: Steri-Strips - Bilateral Tubal Ligation Dressing Removed: No - Lochia Lochia Amount: Scant < 10 ml Lochia Color: Rubra/Red - Abdomen Description: Tender, Soft, Round Hernia Present: No Bowel Sounds: Normoactive Flatus Presence: Present Stool: No Fundal Description: Firm, Midline Fundal Height: u/u - u/2 Objective-Diagnostic Laboratory: 09/11/16 06:53 09/10/16 11:18 09/10/16 09/10/16 09/11/16 11:18 11:18 06:53 WBC 16.8 H 12.3 H RBC 3.14 L 2.94 L Hgb 9.3 L 8.6 L Hct 27.1 L 25.2 L MCV 87 86 MCH 29.6 29.3 MCHC 34.2 34.2 RDW 14.3 H 14.2 H Plt Count 206 185 Potassium 4.1 Magnesium 1.6
[2016-09-11] MEDS ORDERED: PRENATAL VITAMIN W-O CA NO5/FE FUMARATE/FA CAPSULE PO SCH (10:00)
[2016-09-11] MEDS: OXYCODONE-ACETAMINOPHEN 5-325 MG TABLET PO PRN (15:44)
--- NOTE | 2016-09-11 20:59 | PROGRESS NOTE E ---
Progress Note NAME: SHIMA SARMIENTO : 1990 AGE: 25Y DATE: 09/11/2016 ROOM: 222 SUBJECTIVE: Note that the patient was seen from 9:55 to 10:20 a.m., a total of 25 minutes spent. The patient denies any chest pain or discomfort. She denies any palpitations. She has no PND or orthopnea. Her pain is much improved. There is no leg edema. There is no dizziness. There is no syncope. OBJECTIVE: GENERAL: On examination the patient is mildly obese, in no acute distress. VITAL SIGNS: She is afebrile with a temperature of 98.0 degrees Fahrenheit. Pulse is 74 beats per minute. Blood pressure is 92/53, patient with no symptoms of this low blood pressure. She states her blood pressure usually runs low. Her respiratory rate is 15 per minute. O2 saturations are 96% on room air. HEAD: Atraumatic/normocephalic. EYES: Pupils are equal, round, regular, reactive to light and accommodation. Extraocular movements are normal. There is no conjunctival pallor. There is no scleral icterus. EARS, NOSE, AND THROAT: Negative. NECK: Supple. There is no JVD. Carotids are equal. There is no bruit. There is no goiter. There is no lymphadenopathy. LUNGS: Clear to auscultation and percussion without any rhonchi, rales, or wheezing. HEART: S1, S2 is heard. There is no S3 gallop. There is no S4 gallop. There is a systolic murmur of questionable mitral regurgitation. There is no aortic stenosis and no aortic regurgitation murmur. There is no rub. ABDOMEN: Soft, slightly tender to site of , but without bowel sounds are normal. There is no rebound, guarding, or rigidity. There is no hepatosplenomegaly. EXTREMITIES: Femorals are diminished. There is no femoral bruit. Leg pulses are well felt. There is no cyanosis or clubbing. There is no pedal edema. There is no calf tenderness. CENTRAL NERVOUS SYSTEM: The patient is conscious, awake, alert, oriented x3 with no focal deficit. PSYCHIATRIC: The patient's judgement and insight are intact. Her affect is normal. DIAGNOSTIC DATA: Her EKG shows sinus rhythm with only 2 bigeminal PVCs. There are no acute changes. The patient's white count is 12,300, hemoglobin is 8.6, hematocrit is 25.2, platelet count is 185,000. IMPRESSION: 1. ASYMPTOMATIC PVCS, NOW MUCH LESS. 2. SYSTOLIC MURMUR, ? MITRAL REGURGITATION. 3. TOBACCO ABUSE. 4. RECENT SECTION. THIS IS THE SECOND SECTION FOR THE PATIENT. PLAN: The patient appears to be stable, will sign off the case, but before that I have discussed with the patient if she has any shortness of breath, chest pain, orthopnea or PND (explained in simple terms), palpitations, or dizziness or syncope to call me immediately. She will follow up with me in the office, will get an echocardiogram and a 24-hour Holter monitor. Note, 25 minutes spent on this patient with more than 50% of the time spent on patient care and review of the patient's medications. At present, the patient is not on any cardiac medications. Discussed with the executive talent acquisition consultant/nurse taking care of the patient. Will sign off the case. Again, tobacco cessation counseling was done. DICTATING PHYSICIAN: CONCHIS RAND M.D. [id number] [facility]#: [id number] ID: [id number] JOB#: [id number] ACCT: [id number] cc:CONCHIS RAND M.D. >
[2016-09-12] MEDS: IBUPROFEN 800 MG TABLET PO SCH ×2 (00:02→05:56)
[2016-09-12] MEDS: OXYCODONE-ACETAMINOPHEN 5-325 MG TABLET PO PRN ×2 (00:03→06:19)
--- NOTE | 2016-09-12 09:39 | PDOC PROGRESS REPORT ---
Subjective-OB Subjective: Post Delivery Day: 25 year old. Denies any needs at this time. Ready to go home. Physical Exam (OB) Vital Signs: Temp Pulse Resp BP Pulse Ox 98.0 F 92 18 103/51 L 98 09/12/16 08:49 09/12/16 08:49 09/12/16 08:49 09/12/16 08:49 09/12/16 08:49 Intake & Output 09/11/16 09/12/16 09/13/16 06:59 06:59 06:59 Intake Total 5250 1200 Output Total 3805 Balance 1445 1200 - Dressing Removed: No - opsite dressing in place Incision: Dressing Closure Type: op site - Bilateral Tubal Ligation Dressing Removed: No - Lochia Lochia Amount: Scant < 10 ml Lochia Color: Rubra/Red - Abdomen Description: Tender, Soft Hernia Present: No Bowel Sounds: Normoactive Flatus Presence: Present Stool: No Fundal Description: Firm, Midline Fundal Height: u/u - u/2 Objective-Diagnostic Laboratory: 09/11/16 06:53 09/10/16 11:18 09/11/16 06:53 Blood Type O NEGATIVE
--- NOTE | 2016-09-12 09:51 | PDOC DISCHARGE SUMMARY ---
Final Diagnosis Discharge Date: 09/12/16 - Final Diagnosis (1) PVC (premature ventricular contraction) Is this a current diagnosis for this admission?: Yes (2) Anemia Is this a current diagnosis for this admission?: Yes (3) Delivery by elective caesarean section Is this a current diagnosis for this admission?: Yes (4) Is this a current diagnosis for this admission?: Yes Discharge Data - Discharge Medication Home Medications: Tsg794/FA/Omega3/Dha/Fish Oil [ Gummies] 1 tab PO DAILY 08/15/16 Docusate Sodium [Colace 100 mg Capsule] 100 mg PO BID #30 capsule 09/12/16 Ibuprofen [Motrin 800 mg Tablet] 800 mg PO Q6 #30 tablet 09/12/16 Oxycodone HCl/Acetaminophen [Percocet 5-325 mg Tablet] 1 tab PO Q4HP PRN #20 tablet 09/12/16 Gestational Age: 39.2 wks Reason(s) for Admission: Ceasarean Section-Repeat Procedures: Ultrasound Intrapartum Procedure(s): : Low Cervical, Transverse - [place] Data Baby 1 Male at 1 minute: 8 at 5 minutes: 9 Weight: 2990 kg Home with Mother: Yes Complications: No - Diagnosis Test Laboratory: Temp Pulse Resp BP Pulse Ox 98.0 F 92 18 103/51 L 98 09/12/16 08:49 09/12/16 08:49 09/12/16 08:49 09/12/16 08:49 09/12/16 08:49 09/08/16 09/08/16 09/10/16 10:48 10:50 11:18 RBC 3.77 3.14 L Hgb 10.9 L 9.3 L Hct 32.1 L 27.1 L Urine Opiates Screen NEGATIVE 09/11/16 06:53 RBC 2.94 L Hgb 8.6 L Hct 25.2 L Urine Opiates Screen - Discharge information/Instructions Discharge Activity: Activity As Tolerated, Balance Activity w/Rest, No Driving, No Lifting Over 10 Pounds, No Lifting/Push/Pulling, Pelvic Rest, Slowly Increase Activity, No tub bath Discharge Diet: Regular Disposition: HOME, SELF-CARE Follow up with: [facility] in: 1, Weeks
[2016-09-12 10:51] VITALS: BP 100/55
== END 2016-09-12 12:10 | disposition home or self-care (01) | DRG 765 ==
LOC: 2S 05:05
PROVIDERS: ADMIT Obstetrics & Gynecology; ATTEND Obstetrics & Gynecology
PROC: 4A1HXCZ Monitoring of Products of Conception, Cardiac Rate, External Approach (ICD-10-PCS; 2016-09-10)
PROC: 10D00Z1 Extraction of Products of Conception, Low, Open Approach (ICD-10-PCS; principal; 2016-09-10 07:45)
PROC: 3E0234Z Introduction of Serum, Toxoid and Vaccine into Muscle, Percutaneous Approach (ICD-10-PCS; 2016-09-11)
DX: O34.211 Maternal care for low transverse scar from previous cesarean delivery (principal); O99.42 Diseases of the circulatory system complicating childbirth; O26.893 Other specified pregnancy related conditions, third trimester; I49.3 Ventricular premature depolarization; O99.334 Smoking (tobacco) complicating childbirth; Z67.41 Type O blood, Rh negative; F17.210 Nicotine dependence, cigarettes, uncomplicated; D64.9 Anemia, unspecified; O99.02 Anemia complicating childbirth; Z37.0 Single live birth; Z3A.39 39 weeks gestation of pregnancy
CPT/HCPCS: 1961; 36415; 59025; 80307; 81001; 83735; 84132; 85025; 85027; 85461; 86850; 86900; 86901; 93005; 93010; 94799; J0131; J0690; J2210; J2250; J2270; J2405; J2590; J2790; J3010; J3490; J7120

== ENCOUNTER → 2017-11-08 | Outpatient (CLI) | payer MEDICAID ==
--- NOTE | 2017-11-08 14:08 | RADIOLOGY REPORT (SQ) ---
EXAM DESCRIPTION: LUMBAR SPINE COMPLETE COMPLETED DATE/TIME: 11/08/2017 1:53 pm REASON FOR STUDY: M54.41 CHRONIC MIDLINE LOW BACK PAIN WITH BILATERAL SCIATICA COMPARISON: None. NUMBER OF VIEWS: Five views including obliques. TECHNIQUE: AP, lateral, oblique, and sacral radiographic images acquired of the lumbar spine. LIMITATIONS: None. FINDINGS: MINERALIZATION: Normal. SEGMENTATION: Normal. No transitional anatomy. ALIGNMENT: Normal. VERTEBRAE: Maintained height. No fracture or worrisome bone lesion. DISCS: Preserved height. No significant osteophytes or end plate irregularity. POSTERIOR ELEMENTS: Pedicles and facets are intact. No pars defect or posterior arch defects. HARDWARE: None in the spine. PARASPINAL SOFT TISSUES: Normal. PELVIS: Intact as visualized. No fractures or worrisome bone lesions. SI joints intact. OTHER: No other significant finding. IMPRESSION: NORMAL 5 VIEW LUMBAR SPINE. TECHNICAL DOCUMENTATION: JOB ID: [id number] [employer]- All Rights Reserved Reading location - IP/workstation name: [email or web address]
--- NOTE | 2017-11-08 14:08 | RADIOLOGY REPORT (SQ) ---
EXAM DESCRIPTION: HIP RIGHT AP/LATERAL COMPLETED DATE/TIME: 11/08/2017 1:53 pm REASON FOR STUDY: M25.551 RIGHT HIP PAIN M25.551 RIGHT HIP PAIN chronic. Worse last 2 weeks. COMPARISON: None. NUMBER OF VIEWS: Two views. TECHNIQUE: AP pelvis and additional frog-leg view of the right hip. LIMITATIONS: None. FINDINGS: MINERALIZATION: Normal. RIGHT HIP: No fracture or dislocation. No worrisome bone lesions. No contour deformity. No joint sp josefina narrowing. LEFT HIP: No fracture or dislocation. No worrisome bone lesions. PUBIS AND ISCHIUM: No fracture. PELVIS: No fracture. SACRUM: No fracture or dislocation. No worrisome bone lesions. LOWER LUMBAR SPINE: No fracture or dislocation. No worrisome bone lesions. No significant disc disea se. SOFT TISSUES: No findings. OTHER: No other significant finding. IMPRESSION: NEGATIVE STUDY OF THE RIGHT HIP. NO EXPLANATION FOR PAIN. TECHNICAL DOCUMENTATION: JOB ID: [id number] [employer]- All Rights Reserved Reading location - IP/workstation name: [email or web address]
== END ==
LOC: OD 13:31
PROVIDERS: ATTEND Nurse Practitioner Family
DX: M54.41 Lumbago with sciatica, right side (principal); M25.551 Pain in right hip
CPT/HCPCS: 72110

== ENCOUNTER 2019-11-16 22:01 | Emergency (ER) | payer MEDICAID ==
[2019-11-17] MEDS ORDERED: ACETAMINOPHEN 325 MG TABLET PO ONE (00:16)
--- NOTE | 2019-11-17 00:19 | ER Document Report ---
ED Medical Screen (RME) - General Chief Complaint: Toe Injury Stated Complaint: RIGHT TOE INJURY Time Seen by Provider: 11/17/19 00:13 Primary Care Provider: BRYSON WORTHINGTON FNP-C [Primary Care Provider] - Follow up as needed Mode of Arrival: Ambulatory Information source: Patient Notes: HPI; 29-year-old female presents to the emergency room after tripping and fall ing while coming down the stairs at her home earlier today injuring her right great toe. States she took Aleve without relief. Denies any history of previous trauma or injury to her toe. States she noticed bruising this evening and presents to the emergency room for worsening pain and bruising. States she is able to walk but is painful. PE: Alert and oriented x3. Mild distress noted. Lungs: Clear to auscultation without rales, rhonchi, wheezes. Heart: Regular rate rhythm without murmurs, rubs, gallops. Right great toe with tenderness and ecchymosis noted on the medial aspect at the base of the right great toe. Positive right pedal pulse. Capillary refill less than 3 seconds. I have greeted and performed a rapid initial assessment of this patient. A comprehensive ED assessment and evaluation of the patient, analysis of test results and completion of the medical decision making process will be conducted by additional ED providers. I have specifically instructed the patient or family members with the patient to immediately return to any nursing staff should anything change in the patient's condition or with their chief complaint. TRAVEL OUTSIDE OF THE [place] IN LAST 30 DAYS: No - Related Data Allergies/Adverse Reactions: No Known Allergies Allergy (Verified 08/14/16 23:42) Past Medical History - Past Medical History Cardiac Medical History: Denies: Hx Hypertension, Hx Pulmonary Embolism, Hx Heart Murmur Pulmonary Medical History: Denies: Hx Asthma, Hx Sleep Apnea, Hx Tuberculosis Neurological Medical History: Denies: Hx Cerebrovascular Accident, Hx Seizures Endocrine Medical History: Denies: Hx Hyperthyroidism, Hx Hypothyroidism Renal/ Medical History: Denies: Hx Kidney Stones, Hx Ovarian Cysts, Hx Pelvic Inflammatory Disease Malignancy Medical History: Denies: Hx Breast Cancer, Hx Cervical Cancer, Hx Ovarian Cancer GI Medical History: Denies: Hx Gastroesophageal Reflux Disease, Hx Hiatal Hernia, Hx Ulcer Musculoskeltal Medical History: Denies Hx Fibromyalgia Psychiatric Medical History: Denies: Hx Bipolar Disorder, Hx Depression, Hx Post Traumatic Stress Disorder, Hx Schizophrenia Traumatic Medical History: Denies: Hx Fractures Infectious Medical History: Denies: Hx HIV Past Surgical History: Reports: Hx Section - Immunizations Immunizations up to date: Yes Hx Diphtheria, Pertussis, Tetanus Vaccination: No Physical Exam - Vital signs Vitals: Temp Pulse Resp BP Pulse Ox 99.1 F 86 16 125/63 100 11/16/19 22:38 11/16/19 22:38 11/16/19 22:38 11/16/19 22:38 11/16/19 22:38 Course - Vital Signs Vital signs: Temp Pulse Resp BP Pulse Ox 99.1 F 86 16 125/63 100 11/16/19 22:38 11/16/19 22:38 11/16/19 22:38 11/16/19 22:38 11/16/19 22:38 Doctor's Discharge - Discharge Referrals: BRYSON WORTHINGTON FNP-C [Primary Care Provider] - Follow up as needed
--- NOTE | 2019-11-17 01:23 | RADIOLOGY REPORT (SQ) ---
EXAM DESCRIPTION: XR right great toe, 3 views COMPLETED DATE/TME: 11/17/2019 00:17 CLINICAL HISTORY: 29 years, Female, right great toe injury COMPARISON: None. NUMBER OF VIEWS: TECHNIQUE: LIMITATIONS: None. FINDINGS: No fracture or dislocation. Mineralization of bone appears normal. IMPRESSION: No fracture or dislocation. copyright 2010 [employer]- All Rights Reserved
[2019-11-17 03:12] VITALS: BP 132/70
== END 2019-11-17 04:55 | disposition left against medical advice (07) ==
LOC: ER 22:01
DX: S90.111A Contusion of right great toe without damage to nail, initial encounter (principal); W10.9XXA Fall (on) (from) unspecified stairs and steps, initial encounter; Z53.20 Procedure and treatment not carried out because of patient's decision for unspecified reasons
CPT/HCPCS: 99283; 73660; J3490; 99281

== ENCOUNTER 2020-03-07 20:16 | Emergency (ER) | payer MEDICAID ==
[2020-03-07] MEDS ORDERED: FAMOTIDINE INJ/PF 20 MG/2 ML SDV IV ONE (21:31)
[2020-03-07] MEDS ORDERED: NORMAL SALINE 1000 ML 1,000 ML IV ONE (21:31)
--- NOTE | 2020-03-07 21:33 | ER Document Report ---
ED Medical Screen (RME) - General Chief Complaint: OB Problem (<20wks) Stated Complaint: VOMITTING 15 WKS PREG Time Seen by Provider: 03/07/20 21:21 Primary Care Provider: BRYSON WORTHINGTON FNP-C [Primary Care Provider] - Follow up as needed Mode of Arrival: Ambulatory Information source: Patient Notes: 29-year-old female patient presenting to the emergency department chief complaint of vomiting. Patient reports she is 15 weeks with her third . She denies any abdominal pain, abnormal vaginal discharge or vaginal bleeding. She states she had hyperemesis gravidarum with her previous pregnancies. She has been vomiting continuously for the last 3 days. She denies any fever or chills. Patient appears well, nontoxic, vital signs reviewed and are within normal limits. Patient does not appear to be overly dehydrated. We will obtain labs, give IV fluids and IV antiemetics and reevaluate. I have greeted and performed a rapid initial assessment of this patient. A comprehensive ED assessment and evaluation of the patient, analysis of test results and completion of the medical decision making process will be conducted by additional ED providers. I have specifically instructed the patient or family members with the patient to immediately return to any nursing staff should anything change in the patient's condition or with their chief complaint. TRAVEL OUTSIDE OF THE [place] IN LAST 30 DAYS: No - Related Data Allergies/Adverse Reactions: No Known Allergies Allergy (Verified 08/14/16 23:42) Home Medications: gummies Past Medical History - Past Medical History Cardiac Medical History: Denies: Hx Hypertension, Hx Pulmonary Embolism, Hx Heart Murmur Pulmonary Medical History: Denies: Hx Asthma, Hx Sleep Apnea, Hx Tuberculosis Neurological Medical History: Denies: Hx Cerebrovascular Accident, Hx Seizures Endocrine Medical History: Denies: Hx Hyperthyroidism, Hx Hypothyroidism Renal/ Medical History: Denies: Hx Kidney Stones, Hx Ovarian Cysts, Hx Pelvic Inflammatory Disease Malignancy Medical History: Denies: Hx Breast Cancer, Hx Cervical Cancer, Hx Ovarian Cancer GI Medical History: Denies: Hx Gastroesophageal Reflux Disease, Hx Hiatal Hernia, Hx Ulcer Musculoskeltal Medical History: Denies Hx Fibromyalgia Psychiatric Medical History: Denies: Hx Bipolar Disorder, Hx Depression, Hx Post Traumatic Stress Disorder, Hx Schizophrenia Traumatic Medical History: Denies: Hx Fractures Infectious Medical History: Denies: Hx HIV Past Surgical History: Reports: Hx Section - Immunizations Immunizations up to date: Yes Hx Diphtheria, Pertussis, Tetanus Vaccination: No Physical Exam - Vital signs Vitals: Temp Pulse Resp BP Pulse Ox 98.3 F 76 12 99/55 L 98 03/07/20 20:58 03/07/20 20:58 03/07/20 20:58 03/07/20 20:58 03/07/20 20:58 Course - Vital Signs Vital signs: Temp Pulse Resp BP Pulse Ox 98.3 F 76 12 99/55 L 98 03/07/20 20:58 03/07/20 20:58 03/07/20 20:58 03/07/20 20:58 03/07/20 20:58 Doctor's Discharge - Discharge Referrals: BRYSON WORTHINGTON FNP-C [Primary Care Provider] - Follow up as needed
[2020-03-07 22:20] LABS: ABSOLUTE EOSINOPHILS # (AUTO) 0.1 10^3/uL (0.0-0.6); ABSOLUTE LYMPHOCYTES (AUTO) 1.7 10^3/uL (0.5-4.7); ABSOLUTE MONOCYTES (AUTO) 0.5 10^3/uL (0.1-1.4); ABSOLUTE NEUT (AUTO) 8.6 10^3/uL (1.7-8.2); BASOPHILS % (AUTO) 0.3 % (0-2); EOSINOPHILS % (AUTO) 0.5 % (0-6); HEMATOCRIT 36.7 % (36.0-47.0); HEMOGLOBIN 12.9 g/dL (12.0-15.5); LYMPHOCYTES % (AUTO) 15.6 % (13-45); MEAN CORPUSCULAR HEMOGLOBIN 32.4 pg (27.0-33.4); MEAN CORPUSCULAR HGB CONC 35.1 g/dL (32.0-36.0); MEAN CORPUSCULAR VOLUME 92 fl (80-97); MONOCYTES % (AUTO) 4.8 % (3-13); PLATELET COUNT 193 10^3/uL (150-450); RED BLOOD COUNT 3.97 10^6/uL (3.72-5.28); RED CELL DISTRIBUTION WIDTH 13.5 % (11.5-14.0); SEGMENTED NEUTROPHILS % (AUTO) 78.8 % (42-78); TOTAL CELLS COUNTED % (AUTO) 100 %
[2020-03-07 22:21] LABS: APPEARANCE,URINE SLIGHTLY-CLOUDY; BILIRUBIN,URINE NEGATIVE (NEGATIVE); COLOR,URINE YELLOW; GLUCOSE, URINE NEGATIVE (NEGATIVE); KETONES,URINE 20 mg/dL (NEGATIVE); LEUKOCYTE ESTERASE,URINE TRACE (NEGATIVE); NITRITE,URINE NEGATIVE (NEGATIVE); PROTEIN,URINE 30 mg/dL (NEGATIVE); URINE SPECIFIC GRAVITY 1.027
[2020-03-07 22:32] LABS: ALKALINE PHOSPHATASE 57 U/L (38-126); ANION GAP 9 (5-19); ASPARTATE AMINO TRANSFERASE 14 U/L (14-36); BILIRUBIN,DIRECT 0.3 mg/dL (0.0-0.4); BILIRUBIN,TOTAL 0.4 mg/dL (0.2-1.3); BLOOD UREA NITROGEN 8 mg/dL (7-20); CALCIUM 9.8 mg/dL (8.4-10.2); CARBON DIOXIDE 24 mmol/L (22-30); CHLORIDE 103 mmol/L (98-107); GLUCOSE 73 mg/dL (75-110); POTASSIUM 3.9 mmol/L (3.6-5.0)
[2020-03-08] MEDS ORDERED: ONDANSETRON HCL INJ/PF 4 MG/2 ML SDV IV ONE (00:33)
[2020-03-08] MEDS ORDERED: ONDANSETRON ODT 4 MG TAB (6 TAB/ER DISP) PO PRN (00:33)
[2020-03-08] MEDS ORDERED: NITROFURANTOIN MONOHYD/M-CRYST 100 MG CAPSULE PO ONE (00:39)
--- NOTE | 2020-03-08 00:57 | ER Document Report ---
ED General - General Chief Complaint: OB Problem (<20wks) Stated Complaint: VOMITTING 15 WKS PREG Time Seen by Provider: 03/07/20 21:21 Primary Care Provider: BRYSON WORTHINGTON FNP-C [NURSE PRACTITIONER] - Follow up as needed Mode of Arrival: Ambulatory TRAVEL OUTSIDE OF THE [place] IN LAST 30 DAYS: No - HPI Context: This is a 29-year-old G3, P2 aborta 0 female presenting to the emergency department with a chief complaint of nausea and vomiting for the past 3 days. Patient states she is 15 weeks , has had a ultrasound which has shown a intrauterine and has scheduled an appointment to be seen at the health department on 03/11/2020 about her hyperemesis. Patient states she is had hyperemesis with her previous pregnancies. Patient denies goodwin of fluids, vaginal bleeding. Patient denies fever, chills, chest pain, shortness of br eath, diarrhea, loss of sense of taste or sense of smell, history of COVID-19 infection, history of known contact with COVID-19 positive persons or persons under investigation for COVID-19. Patient states that her nausea and vomiting is severe and rates it as a 4 on a scale of 0-5. Patient states that her symptoms are exacerbated when she tries to eat or drink. Patient states nothing lately has been helping her hyperemesis but she has used Zofran in the past with success. Associated symptoms: Other - See HPI Exacerbated by: Other - See HPI Relieved by: Other - See HPI Similar symptoms previously: Yes - Related Data Allergies/Adverse Reactions: No Known Allergies Allergy (Verified 08/14/16 23:42) Home Medications: gummies Past Medical History - General Information source: Patient - Social History Smoking Status: Never Smoker Frequency of alcohol use: None Drug Abuse: None Lives with: Spouse/Significant other Family History: Reviewed & Not Pertinent Patient has suicidal ideation: No Patient has homicidal ideation: No - Past Medical History Cardiac Medical History: Denies: Hx Hypertension, Hx Pulmonary Embolism, Hx Heart Murmur Pulmonary Medical History: Denies: Hx Asthma, Hx Sleep Apnea, Hx Tuberculosis Neurological Medical History: Denies: Hx Cerebrovascular Accident, Hx Seizures Endocrine Medical History: Denies: Hx Hyperthyroidism, Hx Hypothyroidism Renal/ Medical History: Denies: Hx Kidney Stones, Hx Ovarian Cysts, Hx Pelvic Inflammatory Disease Malignancy Medical History: Denies: Hx Breast Cancer, Hx Cervical Cancer, Hx Ovarian Cancer GI Medical History: Denies: Hx Gastroesophageal Reflux Disease, Hx Hiatal Hernia, Hx Ulcer Musculoskeletal Medical History: Denies Hx Fibromyalgia Psychiatric Medical History: Denies: Hx Bipolar Disorder, Hx Depression, Hx Post Traumatic Stress Disor cyndie, Hx Schizophrenia Traumatic Medical History: Denies: Hx Fractures Infectious Medical History: Denies: Hx HIV Past Surgical History: Reports: Hx Section - Immunizations Immunizations up to date: Yes Hx Diphtheria, Pertussis, Tetanus Vaccination: No Review of Systems - Review of Systems Constitutional: No symptoms reported EENT: No symptoms reported Cardiovascular: No symptoms reported Respiratory: No symptoms reported Gastrointestinal: Nausea, Vomiting Genitourinary: No symptoms reported Female Genitourinary: No symptoms reported Musculoskeletal: No symptoms reported Skin: No symptoms reported Hematologic/Lymphatic: No symptoms reported Neurological/Psychological: No symptoms reported -: Yes All other systems reviewed and negative Physical Exam - Vital signs Vitals: Temp Pulse Resp BP Pulse Ox 98.3 F 76 12 99/55 L 98 03/07/20 20:58 03/07/20 20:58 03/07/20 20:58 03/07/20 20:58 03/07/20 20:58 - Notes Notes: CONSTITUTIONAL [Vital signs reviewed, Patient appears comfortable, Alert and oriented X 3, Normal stature.] HEAD [Atraumatic, Normocephalic.] EYES [Eyes are normal to inspection, No discharge from eyes, Extraocular muscles intact, Sclera are normal, Conjunctiva are normal.] NECK [Normal ROM, No jugular venous distention, No meningeal signs, no carotid bruit.] RESPIRATORY CHEST [Chest is nontender, Breath sounds normal, No respiratory distress.] CARDIOVASCULAR [RRR, No murmurs, Normal S1 S2, No rub, No gallop.] ABDOMEN [Abdomen is nontender, No pulsatile masses, No other masses, Bowel sounds normal, No distension, No peritoneal signs, No hernias.] BACK [There is no CVA Tenderness, There is no tenderness to palpation, Normal inspection.] UPPER EXTREMITY [Inspection normal, No cyanosis, No clubbing, No edema, 2+ radial pulses.] LOWER EXTREMITY [Inspection normal, No cyanosis, No clubbing, No edema, No calf tenderness, 2+ femoral pulses.] NEURO [No focal motor deficits, No focal sensory deficits, Speech normal.] SKIN [Skin is warm, Skin is dry, Skin is normal color.] PSYCHIATRIC [Normal affect. ] Course - Re-evaluation Re-evalutation: 03/08/20 01:05 Results of ED MSE discussed with patient. All questions were answered prior to discharge. Emergency signs and symptoms, reasons to return to the emergency department discussed with patient. 03/08/20 01:05 heart tones are 144 - Vital Signs Vital signs: Temp Pulse Resp BP Pulse Ox 98.3 F 76 12 99/55 L 98 03/07/20 20:58 03/07/20 20:58 03/07/20 20:58 03/07/20 20:58 03/07/20 20:58 - Laboratory Result Diagrams: 03/07/20 21:45 03/07/20 21:45 Laboratory results interpreted by me: 03/07/20 03/07/20 03/07/20 21:45 21:45 21:45 WBC 11.0 H Absolute Neuts (auto) 8.6 H Seg Neutrophils % 78.8 H Sodium 135.7 L Glucose 73 L Lipase 20.7 L Urine Protein 30 H Urine Ketones 20 H Urine Blood MODERATE H Urine Urobilinogen 2.0 H Ur Leukocyte Esterase TRACE H Discharge - Discharge Clinical Impression: Hyperemesis gravidarum UTI (urinary tract infection) Qualifiers: Urinary tract infection type: site unspecified Hematuria presence: with hematuria Qualified Code(s): N39.0 - Urinary tract infection, site not specified; R31.9 - Hematuria, unspecified Condition: Stable Disposition: HOME, SELF-CARE Instructions: Nitrofurantoin ([facility]), Urinary Tract Infection ([facility]) Additional Instructions: Return to the Emergency Department without delay if any worse. Follow-up with the health department as scheduled on 03/11/2020 HOME CARE INSTRUCTIONS & INFORMATION: Thank you for choosing us for your medical needs. We hope you're satisfied with the care you received. After you leave, you must properly care for your problem and, at the same time, observe its progress. Any condition can change. Some illnesses can change rapidly over hours or days. If your condition worsens, return to the Emergency Department or see your physician promptly. ABOUT YOUR X-RAYS AND EKG'S: If you had an EKG or X-rays taken, they have been read by the Emergency Physician. The X-rays and EKG's will also be read by a Radiologist or Rail Gang Supervisor within 24 hours. If discrepancies are noted, you will be notified by telephone. Please be certain the ED has a correct telephone number & address where you can be reached. Also, realize that some fractures or abnormalities do not show up on initial X-rays. If your symptoms continue, see your physician. ABOUT YOUR LABORATORY TEST: If you had laboratory tests, the results have been reviewed by the Emergency Physician. Some test results (for example cultures) may not be available for several days. You will be contacted if any test result shows you need additional treatment. Please be certain the ED has a correct telephone number and address where you can be reached. ABOUT YOUR MEDICATIONS: You will receive instructions on how to take your medicine on the prescription label you receive. Additional information may be provided by the Pharmacy. If you have questions afterwards, call the ED for clarification or further instructions. Some prescribed medications may cause drowsiness. Do not perform tasks such as driving a car or operating machinery without consulting your Pharmacist. If you feel you need a refill of pain medication, your condition will need re-evaluation. Please do not call for a refill of any medication. ABOUT YOUR SIGNATURE: Signature of this document acknowledges to followin. Understanding that you received emergency treatment and that you may be released before al medical problems are known or treated. Please be certain the ED has a correct phone number & address where you can be reached. 2. Acknowledgement that you will arrange for follow-up care as recommended. 3. Authorization for the Emergency Physician to provide information to your follow-up Physician in order to maximize your care. AT ANY TIME, IF YOUR SYMPTOMS CHANGE SIGNIFICANTLY OR WORSEN OR YOU DEVELOP NEW SYMPTOMS, RETURN TO THE EMERGENCY DEPARTMENT IMMEDIATELY FOR RE-EVALUATION. OUR GOAL IS TO PROVIDE EXCELLENT MEDICAL CARE! WE HOPE THAT WE HAVE MET YOUR EXPECTATIONS DURING YOUR EMERGENCY DEPARTMENT VISIT AND THAT YOU FEEL YOU HAVE RECEIVED EXCELLENT CARE! Prescriptions: Ondansetron [Zofran Odt 4 mg Tablet] 4 mg PO Q8HP PRN #30 tab.rapdis PRN Reason: nausea Nitrofurantoin Monohyd/M-Cryst [Macrobid 100 mg Capsule] 100 mg PO BID 7 Days #14 cap Referrals: BRYSON WORTHINGTON FNP-C [NURSE PRACTITIONER] - Follow up as needed
[2020-03-08 02:38] VITALS: BP 101/58
== END 2020-03-08 02:47 | disposition home or self-care (01) ==
LOC: ER 20:16
DX: O21.0 Mild hyperemesis gravidarum (principal); O23.42 Unspecified infection of urinary tract in pregnancy, second trimester; Z3A.15 15 weeks gestation of pregnancy; Z79.899 Other long term (current) drug therapy
CPT/HCPCS: 99284; 96361; 96374; 36415; 83690; 85025; 80053; 81001; J2405; J7030; J3490; J8499